=== PATIENT | male | born 1940 | race Caucasian/White ===

== ENCOUNTER → 2016-07-13 | Outpatient (REF) | payer MEDICARE ==
[2016-07-13 19:06] LABS: CALCIUM LEVEL 10.8 MG/DL (8.8-10.2); CREATININE FOR GFR 1.56 MG/DL (0.70-1.30); GLOMERULAR FILTRATION RATE 46.3 (>42); PHOSPHORUS LEVEL 2.9 MG/DL (2.5-4.9); POTASSIUM SERUM 4.3 MEQ/L (3.5-5.1)
== END ==
LOC: M SFHCCLAY 10:40
PROVIDERS: ATTEND Family Medicine
DX: N18.3 Chronic kidney disease, stage 3 (moderate) (principal)
CPT/HCPCS: 80069; G0463

== ENCOUNTER → 2018-02-28 | Outpatient (REF) | payer MEDICARE ==
[2018-02-28 19:23] LABS: PROSTATIC SPECIFIC AG MONITOR 0.2 NG/ML (< 4.0)
== END ==
LOC: M LAB REF 19:00
DX: Z85.46 Personal history of malignant neoplasm of prostate (principal)
CPT/HCPCS: 84153

== ENCOUNTER → 2018-04-18 | Outpatient (REF) | payer MEDICARE ==
[2018-04-18 16:44] LABS: CHOLESTEROL RISK RATIO 4.955 (<5)
== END ==
LOC: M SFHCCLAY 11:40
PROVIDERS: ATTEND Family Medicine
DX: E78.2 Mixed hyperlipidemia (principal); Z23 Encounter for immunization
CPT/HCPCS: 80061; 90682; G0008; G0463

== ENCOUNTER → 2018-05-11 | Outpatient (REF) | payer MEDICARE ==
[2018-05-11 19:43] LABS: PROTHROMBIN TIME 13.3 SECONDS (12.1-14.4)
[2018-05-11 19:44] LABS: PARTIAL THROMBOPLASTIN TIME 36.8 SECONDS (25.4-37.6)
== END ==
LOC: M LABDRWAD 19:10
PROVIDERS: ATTEND Surgery Vascular Surgery
DX: I70.1 Atherosclerosis of renal artery (principal); Z01.818 Encounter for other preprocedural examination; D69.8 Other specified hemorrhagic conditions

== ENCOUNTER → 2018-05-14 | Outpatient (CLI) | payer MEDICARE ==
[2018-05-14 13:02] LABS: BASO % 0.3 % (0.0-1.0); EOS # 0.2 10^3/uL (0.0-0.50); EOS % 3.4 % (0.0-3.0); HEMATOCRIT 40.2 % (42.0-52.0); HEMOGLOBIN 12.7 g/dl (13.5-17.5); LYMPH # 1.6 10^3/uL (1.5-4.5); LYMPH % 24.3 % (24.0-44.0); MEAN CORPUSCULAR HEMOGLOBIN 30.9 pg (27.0-33.0); MEAN CORPUSCULAR HGB CONC 31.6 g/dl (32.0-36.5); MEAN CORPUSCULAR VOLUME 97.8 fl (80.0-96.0); MONO # 0.5 10^3/uL (0.0-0.8); MONO % 7.6 % (0.0-5.0); NEUTROPHILS # 4.3 10^3/uL (1.8-7.7); NEUTROPHILS % 64.3 % (36.0-66.0); PLATELET COUNT, AUTOMATED 193 10^3/uL (150-450); RED BLOOD COUNT 4.11 10^6/uL (4.30-6.10); WHITE BLOOD COUNT 6.7 10^3/uL (4.0-10.0)
[2018-05-14 13:15] LABS: CALCIUM LEVEL 9.9 MG/DL (8.8-10.2); CREATININE FOR GFR 1.74 MG/DL (0.70-1.30); GLOMERULAR FILTRATION RATE 40.6 (>42); POTASSIUM SERUM 4.1 MEQ/L (3.5-5.1)
== END ==
LOC: M LAB 12:00
PROVIDERS: ATTEND Surgery Vascular Surgery
DX: Z01.818 Encounter for other preprocedural examination (principal); D69.8 Other specified hemorrhagic conditions; I70.1 Atherosclerosis of renal artery

== ENCOUNTER → 2019-09-02 | Outpatient (REF) | payer MEDICARE ==
[2019-09-02 16:37] LABS: APPEARANCE, URINE HAZY (CLEAR); BACTERIA, URINE AUTO NEGATIVE (NEGATIVE); BILIRUBIN, URINE AUTO NEGATIVE (NEGATIVE); BLOOD, URINE BLOOD NEGATIVE (NEGATIVE); COLOR, URINE YELLOW (YELLOW); GLUCOSE, URINE (UA) AUTO NEGATIVE (NEGATIVE); KETONE, URINE AUTO NEGATIVE (NEGATIVE); LEUKOCYTE ESTERASE, URINE AUTO NEGATIVE (NEGATIVE); NITRITE, URINE AUTO NEGATIVE (NEGATIVE); PROTEIN, URINE AUTO 2+ mg/dL (NEGATIVE); RBC, URINE AUTO 0 /HPF (0-3); SPECIFIC GRAVITY URINE AUTO 1.012 (1.002-1.035); SQUAMOUS EPITHELIAL CELL UR AU 2 /HPF (0-6); UROBILINOGEN, URINE AUTO 0.2 mg/dL (0.0-2.0); WBC, URINE AUTO 0 /HPF (0-3)
== END ==
LOC: M LAB REF 15:57
PROVIDERS: ATTEND Urology
DX: Z01.812 Encounter for preprocedural laboratory examination (principal); R33.9 Retention of urine, unspecified
CPT/HCPCS: 81001; 87086; G0463

== ENCOUNTER → 2019-12-17 | Outpatient (CLI) | payer MEDICARE ==
[2019-12-17 16:59] LABS: HEMATOCRIT 36.6 % (42.0-52.0); HEMOGLOBIN 12.1 g/dl (13.5-17.5); MEAN CORPUSCULAR HEMOGLOBIN 31.8 pg (27.0-33.0); MEAN CORPUSCULAR HGB CONC 33.1 g/dl (32.0-36.5); MEAN CORPUSCULAR VOLUME 96.3 fl (80.0-96.0); PLATELET COUNT, AUTOMATED 297 10^3/uL (150-450); WHITE BLOOD COUNT 9.3 10^3/uL (4.0-10.0)
[2019-12-17 17:11] LABS: ALBUMIN 3.2 GM/DL (3.2-5.2); BILIRUBIN,TOTAL 0.5 MG/DL (0.2-1.0); CHOLESTEROL RISK RATIO 5.357 (<5); CREATININE FOR GFR 2.03 MG/DL (0.70-1.30); GLOMERULAR FILTRATION RATE 33.8 (>35); POTASSIUM SERUM 4.2 MEQ/L (3.5-5.1); THYROID STIMULATING HORMONE 3.43 uIU/ML (0.358-3.740)
== END ==
LOC: M ADAMS 14:25
PROVIDERS: ATTEND Physician Assistant
DX: M16.12 Unilateral primary osteoarthritis, left hip (principal); N18.3 Chronic kidney disease, stage 3 (moderate); M25.552 Pain in left hip; E78.5 Hyperlipidemia, unspecified; R63.4 Abnormal weight loss

== ENCOUNTER → 2019-12-17 | Outpatient (CLI) | payer MEDICARE ==
--- NOTE | 2020-01-02 11:08 | REP ---
LEFT HIP SERIES 2 VIEWS: 12/17/19 HISTORY: Pain in the left hip. FINDINGS: An aortal bi-iliac stent graph has been placed and is seen unchanged from comparison CT study 01/07/16. There is superior acetabular spurring. Femoral head is smooth and rounded. Tip joint space is preserved. Vascular calcification is noted. Mild greater trochanteric tendon insertion site spurring is seen. Periarticular soft tissues are unremarkable There is some subcortical cyst formation in the superior acetabular margin. IMPRESSION: Mild osteoarthritic changes. Tendon insertion site spurring on the great trochanter. No bony abnormality. MTDD
== END ==
LOC: M ADAMS 14:22
PROVIDERS: ATTEND Physician Assistant
DX: M16.12 Unilateral primary osteoarthritis, left hip (principal); M25.552 Pain in left hip

== ENCOUNTER → 2020-02-13 | Outpatient (REF) | payer MEDICARE ==
[2020-02-13 18:16] LABS: TOTAL PROTEIN 7.3 GM/DL (6.4-8.2)
[2020-02-17 17:06] LABS: ANCA-ATYPICAL <1:20 titer (Neg:<1:20); ANTI DS-DNA AB Negative (Negative); ANTI-GLOMERULAR BASEMENT MEMB 3 units (0-20); ANTINUCLEAR ANTIBODIES DIRECT Negative (Negative); CYTOPLASMIC NEUTROP AB ANCA-C <1:20 titer (Neg:<1:20); FREE KAPPA LIGHT CHAINS SERUM 64.4 mg/L (3.3-19.4); FREE LAMBDA LIGHT CHAINS SERUM 30.9 mg/L (5.7-26.3); KAPPA/LAMBDA RATIO SERUM 2.08 (0.26-1.65); PERINUCLEAR AB ANCA-P <1:20 titer (Neg:<1:20)
[2020-02-18 11:06] LABS: ALBUMIN 3.92 GM/DL (3.29-5.55); ALBUMIN % 53.7 % (55.8-66.1); ALPHA-1-GLOBULIN % 7.1 % (2.9-4.9); ALPHA-1-GLOBULINS 0.52 GM/DL (0.17-0.41); ALPHA-2-GLOBULINS 0.85 GM/DL (0.42-0.99); ALPHA-2-GLOBULINS % 11.6 % (7.1-11.8); BETA-1-GLOBULINS 0.41 GM/DL (0.28-0.60); BETA-1-GLOBULINS % 5.6 % (4.7-7.2); BETA-2-GLOBULINS 0.39 GM/DL (0.19-0.55); BETA-2-GLOBULINS % 5.4 % (3.2-6.5); GAMMA GLOBULIN % 16.6 % (11.1-18.8); GAMMA GLOBULINS 1.21 GM/DL (0.65-1.58)
[2020-02-18 12:42] LABS: IMMUNOTYPING SERUM IGG ABNORMAL (NORMAL); IMMUNOTYPING SERUM KAPPA ABNORMAL (NORMAL)
== END ==
LOC: M LAB REF 17:16
PROVIDERS: ATTEND Internal Medicine Nephrology
DX: R80.9 Proteinuria, unspecified (principal); E83.52 Hypercalcemia; N18.32 Chronic kidney disease, stage 3b

== ENCOUNTER → 2020-05-08 | Outpatient (CLI) | payer MEDICARE ==
--- NOTE | 2020-05-08 11:42 | REP ---
INDICATION: CHRONIC KIDNEY DISEASE NM INJECTION 1ST US 2ND. COMPARISON: Comparison abdominal CT images January 07, 2016.. TECHNIQUE: Urinary tract sonography. FINDINGS: Scanning at the level of the urinary bladder shows no abnormality. Renal cortical echogenicity pattern is felt to be somewhat increased, essentially isoechoic with liver and spleen consistent with chronic medical renal disease.. Prostate is felt to be enlarged. Transabdominal dimensions are 5.0 x 2.8 x 3.7 cm. There are multiple bilateral renal cysts.. No renal mass is seen. No hydronephrosis is noted on either side. The right kidney measures 12.2 x 4.4 x 5.0 cm. The largest cyst the right kidney is at the upper pole measuring 11.6 x 10.0 x 14.1 cm.. The left renal dimensions are 8.0 x 3.9 x 5.6 cm. There is a 9.2 x 6.1 x 7.2 cm cyst at the left kidney upper pole. Multiple smaller cysts are noted. IMPRESSION: Multiple large bilateral renal cysts as seen previously. Increased renal cortical echogenicity pattern consistent with chronic medical renal disease. No hydronephrosis or mass. Enlarged prostate.. <Electronically signed by Aleksey Espinoza > 05/08/20 [id number]
--- NOTE | 2020-05-08 15:11 | REP ---
INDICATION: CHRONIC KIDNEY DISEASE. Primary hyperparathyroidism. Hypercalcemia. COMPARISON: None. TECHNIQUE: 27.5 mCi of technetium 99 M sestamibi is injected and 15 minutes and 3 hour delayed planar images are acquired. A SPECT acquisition is acquired and reformatted axial, coronal and sagittal imaging planes are reviewed. FINDINGS: Initial 15 minutes images demonstrate expected salivary gland and thyroid lobe uptake. Delayed images demonstrate washout of the thyroid uptake. There is no evidence of some significant nodular uptake in the neck or chest on 3 hour delayed images to suggest adenoma. SPECT imaging shows no additional abnormality. IMPRESSION: Negative parathyroid nuclear scintigraphy. <Electronically signed by Aleksey Espinoza > 05/08/20 [id number]
== END ==
LOC: M RAD 09:19
PROVIDERS: ATTEND Internal Medicine Nephrology
DX: N18.32 Chronic kidney disease, stage 3b (principal); N28.1 Cyst of kidney, acquired; E21.0 Primary hyperparathyroidism
CPT/HCPCS: 76775; 78803; A9500

== ENCOUNTER → 2020-07-16 | Outpatient (REF) | payer MEDICARE ==
[2020-07-16 16:32] LABS: FREE T4 1.04 NG/DL (0.76-1.46); THYROID STIMULATING HORMONE 4.16 uIU/ML (0.358-3.740)
== END ==
LOC: M SFHCADAM 11:08
PROVIDERS: ATTEND Physician Assistant
DX: E78.2 Mixed hyperlipidemia (principal)
CPT/HCPCS: 80061; 84439; 84443; G0463

== ENCOUNTER → 2020-08-24 | Outpatient (CLI) | payer SELFPAY | LOC: M LABSMTC 09:34 | PROVIDERS: ATTEND Pediatrics | DX: Z20.822 Contact with and (suspected) exposure to COVID-19 (principal) ==

== ENCOUNTER → 2020-10-27 | Outpatient (REF) | payer MEDICARE, MEDICAID, BC ==
[2020-10-27 15:50] LABS: APPEARANCE, URINE CLOUDY (CLEAR); BACTERIA, URINE AUTO 1+ (NEGATIVE); BILIRUBIN, URINE AUTO NEGATIVE (NEGATIVE); BLOOD, URINE BLOOD NEGATIVE (NEGATIVE); COLOR, URINE YELLOW (YELLOW); GLUCOSE, URINE (UA) AUTO NEGATIVE (NEGATIVE); KETONE, URINE AUTO NEGATIVE (NEGATIVE); LEUKOCYTE ESTERASE, URINE AUTO TRACE (NEGATIVE); MUCUS, URINE SMALL (NEGATIVE); NITRITE, URINE AUTO NEGATIVE (NEGATIVE); PROTEIN, URINE AUTO 2+ mg/dL (NEGATIVE); RBC, URINE AUTO 1 /HPF (0-3); SPECIFIC GRAVITY URINE AUTO 1.014 (1.002-1.035); SQUAMOUS EPITHELIAL CELL UR AU 1 /HPF (0-6); TRIPLE PHOSPHATE CRYSTALS SMALL; UROBILINOGEN, URINE AUTO 0.2 mg/dL (0.0-2.0); WBC, URINE AUTO 7 /HPF (0-3)
== END ==
PROVIDERS: ATTEND Family Medicine
DX: R30.0 Dysuria (principal)

== ENCOUNTER → 2021-01-19 | Outpatient (REF) | payer MEDICARE, MEDICAID, BC ==
[2021-01-19 18:23] LABS: APPEARANCE, URINE CLOUDY (CLEAR); BACTERIA, URINE AUTO 2+ (NEGATIVE); BILIRUBIN, URINE AUTO NEGATIVE (NEGATIVE); BLOOD, URINE BLOOD NEGATIVE (NEGATIVE); COLOR, URINE YELLOW (YELLOW); GLUCOSE, URINE (UA) AUTO NEGATIVE (NEGATIVE); KETONE, URINE AUTO NEGATIVE (NEGATIVE); LEUKOCYTE ESTERASE, URINE AUTO 2+ (NEGATIVE); MUCUS, URINE SMALL (NEGATIVE); NITRITE, URINE AUTO NEGATIVE (NEGATIVE); PROTEIN, URINE AUTO 1+ mg/dL (NEGATIVE); RBC, URINE AUTO 2 /HPF (0-3); SPECIFIC GRAVITY URINE AUTO 1.012 (1.002-1.035); SQUAMOUS EPITHELIAL CELL UR AU 2 /HPF (0-6); TRIPLE PHOSPHATE CRYSTALS SMALL; UROBILINOGEN, URINE AUTO 0.2 mg/dL (0.0-2.0); WBC, URINE AUTO 15 /HPF (0-3)
== END ==
PROVIDERS: ATTEND Physician Assistant
DX: R35.0 Frequency of micturition (principal)

== ENCOUNTER → 2021-02-02 | Outpatient (REF) | payer MEDICARE, MEDICAID, BC | LOC: M LAB REF 17:46 | PROVIDERS: ATTEND Internal Medicine Nephrology | DX: N18.32 Chronic kidney disease, stage 3b (principal); D63.1 Anemia in chronic kidney disease ==

== ENCOUNTER → 2021-03-29 | Outpatient (REF) | payer MEDICARE, MEDICAID, BC ==
[2021-03-29 20:07] LABS: APPEARANCE, URINE CLEAR (CLEAR); BACTERIA, URINE AUTO NEGATIVE (NEGATIVE); BILIRUBIN, URINE AUTO NEGATIVE (NEGATIVE); BLOOD, URINE BLOOD NEGATIVE (NEGATIVE); COLOR, URINE STRAW (YELLOW); GLUCOSE, URINE (UA) AUTO NEGATIVE (NEGATIVE); KETONE, URINE AUTO NEGATIVE (NEGATIVE); LEUKOCYTE ESTERASE, URINE AUTO TRACE (NEGATIVE); NITRITE, URINE AUTO NEGATIVE (NEGATIVE); PROTEIN, URINE AUTO NEGATIVE (NEGATIVE); RBC, URINE AUTO 0 /HPF (0-3); SPECIFIC GRAVITY URINE AUTO 1.009 (1.002-1.035); SQUAMOUS EPITHELIAL CELL UR AU 0 /HPF (0-6); UROBILINOGEN, URINE AUTO 0.2 mg/dL (0.0-2.0); WBC, URINE AUTO 7 /HPF (0-3)
== END ==
LOC: M SFHCPLAZ 19:24
PROVIDERS: ATTEND Physician Assistant
DX: R30.0 Dysuria (principal)

== ENCOUNTER → 2021-06-28 | Outpatient (REF) | payer MEDICARE, MEDICAID, BC | PROVIDERS: ATTEND Family Medicine | DX: Z20.822 Contact with and (suspected) exposure to COVID-19 (principal) ==

== ENCOUNTER → 2021-07-19 | Outpatient (REF) | payer MEDICARE, MEDICAID, BC ==
[2021-07-19 14:03] LABS: APPEARANCE, URINE HAZY (CLEAR); BACTERIA, URINE AUTO 1+ (NEGATIVE); BILIRUBIN, URINE AUTO NEGATIVE (NEGATIVE); BLOOD, URINE BLOOD NEGATIVE (NEGATIVE); COLOR, URINE YELLOW (YELLOW); GLUCOSE, URINE (UA) AUTO NEGATIVE (NEGATIVE); KETONE, URINE AUTO NEGATIVE (NEGATIVE); LEUKOCYTE ESTERASE, URINE AUTO TRACE (NEGATIVE); NITRITE, URINE AUTO NEGATIVE (NEGATIVE); PROTEIN, URINE AUTO NEGATIVE (NEGATIVE); RBC, URINE AUTO 1 /HPF (0-3); SPECIFIC GRAVITY URINE AUTO 1.014 (1.002-1.035); SQUAMOUS EPITHELIAL CELL UR AU 2 /HPF (0-6); UROBILINOGEN, URINE AUTO 0.2 mg/dL (0.0-2.0); WBC, URINE AUTO 19 /HPF (0-3)
== END ==
PROVIDERS: ATTEND Internal Medicine Nephrology
DX: N18.32 Chronic kidney disease, stage 3b (principal); D63.1 Anemia in chronic kidney disease; E61.1 Iron deficiency

== ENCOUNTER → 2021-07-21 | Outpatient (REF) | payer MEDICARE, MEDICAID, BC ==
[2021-07-21 11:59] LABS: BASO % 0.2 % (0.0-1.0); EOS # 0.6 10^3/uL (0.0-0.5); EOS % 6.8 % (0.0-3.0); HEMATOCRIT 33.7 % (42.0-52.0); HEMOGLOBIN 10.7 g/dl (13.5-17.5); LYMPH # 2.4 10^3/uL (1.5-5.0); LYMPH % 29.1 % (24.0-44.0); MEAN CORPUSCULAR HEMOGLOBIN 30.2 pg (27.0-33.0); MEAN CORPUSCULAR HGB CONC 31.8 g/dl (32.0-36.5); MEAN CORPUSCULAR VOLUME 95.2 fl (80.0-96.0); MONO # 0.4 10^3/uL (0.0-0.8); MONO % 4.6 % (2.0-8.0); NEUTROPHILS # 4.8 10^3/uL (1.5-8.5); NEUTROPHILS % 58.9 % (36.0-66.0); PLATELET COUNT, AUTOMATED 220 10^3/uL (150-450); RED BLOOD COUNT 3.54 10^6/uL (4.30-6.10); WHITE BLOOD COUNT 8.1 10^3/uL (4.0-10.0)
[2021-07-21 12:31] LABS: CALCIUM LEVEL 10.1 MG/DL (8.8-10.2); CREATININE FOR GFR 2.36 MG/DL (0.70-1.30); GLOMERULAR FILTRATION RATE 28.3 (>35); POTASSIUM SERUM 4.1 MEQ/L (3.5-5.1)
== END ==
PROVIDERS: ATTEND Internal Medicine Nephrology
DX: E61.1 Iron deficiency (principal); D63.1 Anemia in chronic kidney disease; N18.32 Chronic kidney disease, stage 3b

== ENCOUNTER → 2021-08-23 | Outpatient (REF) | payer MEDICARE, MEDICAID, BC | LOC: M SFHCDERM 14:12 | PROVIDERS: ATTEND Physician Assistant | DX: C44.41 Basal cell carcinoma of skin of scalp and neck (principal) ==

== ENCOUNTER → 2021-10-21 | Outpatient (REF) | payer MEDICARE, MEDICAID, BC | PROVIDERS: ATTEND Family Medicine | DX: Z20.822 Contact with and (suspected) exposure to COVID-19 (principal) ==

== ENCOUNTER → 2021-10-23 | Outpatient (REF) | payer MEDICARE, MEDICAID, BC ==
[2021-10-23 14:38] LABS: APPEARANCE, URINE CLOUDY (CLEAR); BACTERIA, URINE AUTO 3+ (NEGATIVE); BILIRUBIN, URINE AUTO NEGATIVE (NEGATIVE); BLOOD, URINE BLOOD 1+ (NEGATIVE); COLOR, URINE AMBER (YELLOW); GLUCOSE, URINE (UA) AUTO NEGATIVE (NEGATIVE); GRANULAR CAST, URINE AUTO 3 /LPF; KETONE, URINE AUTO NEGATIVE (NEGATIVE); LEUKOCYTE ESTERASE, URINE AUTO 3+ (NEGATIVE); MUCUS, URINE SMALL (NEGATIVE); NITRITE, URINE AUTO POSITIVE (NEGATIVE); PROTEIN, URINE AUTO 2+ mg/dL (NEGATIVE); RBC, URINE AUTO 4 /HPF (0-3); SPECIFIC GRAVITY URINE AUTO 1.013 (1.002-1.035); SQUAMOUS EPITHELIAL CELL UR AU 0 /HPF (0-6); UROBILINOGEN, URINE AUTO 0.2 mg/dL (0.0-2.0); WBC, URINE AUTO 18 /HPF (0-3)
== END ==
PROVIDERS: ATTEND Family Medicine
DX: R35.0 Frequency of micturition (principal)

== ENCOUNTER → 2021-11-29 | Outpatient (REF) | payer MEDICARE, MEDICAID, BC ==
[2021-11-29 11:25] LABS: BASO % 0.3 % (0.0-1.0); EOS # 0.5 10^3/uL (0.0-0.5); EOS % 5.9 % (0.0-3.0); HEMOGLOBIN 9.9 g/dl (13.5-17.5); LYMPH % 25.4 % (24.0-44.0); MEAN CORPUSCULAR HEMOGLOBIN 30.7 pg (27.0-33.0); MEAN CORPUSCULAR HGB CONC 31.9 g/dl (32.0-36.5); MEAN CORPUSCULAR VOLUME 96.3 fl (80.0-96.0); MONO # 0.5 10^3/uL (0.0-0.8); NEUTROPHILS # 4.8 10^3/uL (1.5-8.5); PLATELET COUNT, AUTOMATED 194 10^3/uL (150-450); RED BLOOD COUNT 3.22 10^6/uL (4.30-6.10); WHITE BLOOD COUNT 7.8 10^3/uL (4.0-10.0)
[2021-11-29 12:26] LABS: ALBUMIN 3.4 GM/DL (3.2-5.2); CALCIUM LEVEL 10.1 MG/DL (8.8-10.2); CREATININE FOR GFR 2.85 MG/DL (0.70-1.30); GLOMERULAR FILTRATION RATE 22.8 (>35); MAGNESIUM LEVEL 2.5 MG/DL (1.8-2.4); PHOSPHORUS LEVEL 3.3 MG/DL (2.5-4.9); POTASSIUM SERUM 4.7 MEQ/L (3.5-5.1)
== END ==
PROVIDERS: ATTEND Internal Medicine Nephrology
DX: N18.32 Chronic kidney disease, stage 3b (principal); D63.1 Anemia in chronic kidney disease

== ENCOUNTER → 2022-02-21 | Outpatient (REF) | payer MEDICARE, MEDICAID, BC ==
[2022-02-21 10:07] LABS: BASO % 0.2 % (0.0-1.0); EOS # 0.7 10^3/uL (0.0-0.5); EOS % 7.9 % (0.0-3.0); HEMOGLOBIN 10.3 g/dl (13.5-17.5); LYMPH # 2.4 10^3/uL (1.5-5.0); LYMPH % 28.4 % (24.0-44.0); MEAN CORPUSCULAR HEMOGLOBIN 32.1 pg (27.0-33.0); MEAN CORPUSCULAR HGB CONC 32.2 g/dl (32.0-36.5); MEAN CORPUSCULAR VOLUME 99.7 fl (80.0-96.0); MONO # 0.5 10^3/uL (0.0-0.8); NEUTROPHILS # 4.8 10^3/uL (1.5-8.5); PLATELET COUNT, AUTOMATED 187 10^3/uL (150-450); RED BLOOD COUNT 3.21 10^6/uL (4.30-6.10); WHITE BLOOD COUNT 8.5 10^3/uL (4.0-10.0)
[2022-02-21 10:45] LABS: ALBUMIN 3.7 G/DL (3.2-5.2); CALCIUM LEVEL 9.2 MG/DL (8.3-10.6); CREATININE FOR GFR 2.28 MG/DL (0.70-1.30); FERRITIN 77.5 NG/ML (10.5-307.3); GLOMERULAR FILTRATION RATE 29.4 (>35); MAGNESIUM LEVEL 2.1 MG/DL (1.8-2.4); PERCENT SATURATION 19.6 % (19.7-50.0); PHOSPHORUS LEVEL 3.6 MG/DL (2.4-5.1); POTASSIUM SERUM 4.9 MMOL/L (3.5-5.1)
== END ==
PROVIDERS: ATTEND Internal Medicine Nephrology
DX: N18.32 Chronic kidney disease, stage 3b (principal); Z79.899 Other long term (current) drug therapy

== ENCOUNTER → 2022-02-28 | Outpatient (REF) | payer MEDICARE, MEDICAID, BC ==
[2022-02-28 18:04] LABS: APPEARANCE, URINE MANUAL CLOUDY (CLEAR); BILIRUBIN, URINE MANUAL NEGATIVE (NEGATIVE); BLOOD URINE MANUAL NEGATIVE (NEGATIVE); COLOR, URINE MANUAL YELLOW (YELLOW); GLUCOSE, URINE (UA) MANUAL NEGATIVE (NEGATIVE); KETONE, URINE MANUAL NEGATIVE (NEGATIVE); LEUKOCYTE ESTERASE, URINE MAN POSITIVE (NEGATIVE); NITRITE, URINE MANUAL POSITIVE (NEGATIVE); PROTEIN, URINE MANUAL NEGATIVE (NEGATIVE); SPECIFIC GRAVITY,URINE MANUAL 1.015 (1.002-1.035); UROBILINOGEN, URINE MANUAL NORMAL (NORMAL)
[2022-02-28 18:17] LABS: BACTERIA, URINE LARGE AMOUNT; HYALINE CAST, URINE NONE SEEN /lpf (0-1); RBC, URINE NONE SEEN /hpf (0-3); SQUAMOUS EPITHELIAL CELL URINE SMALL AMOUNT /hpf (SMALL AMT); WBC, URINE TNTC /hpf (0-3)
== END ==
PROVIDERS: ATTEND Internal Medicine Nephrology
DX: N18.32 Chronic kidney disease, stage 3b (principal)

== ENCOUNTER → 2022-05-30 | Outpatient (REF) | payer MEDICARE, MEDICAID, BC ==
[2022-05-30 10:01] LABS: BASO % 0.2 % (0.0-1.0); EOS # 0.4 10^3/uL (0.0-0.5); EOS % 5.8 % (0.0-3.0); LYMPH # 1.4 10^3/uL (1.5-5.0); LYMPH % 22.7 % (24.0-44.0); MEAN CORPUSCULAR HEMOGLOBIN 30.5 pg (27.0-33.0); MEAN CORPUSCULAR VOLUME 98.3 fl (80.0-96.0); MONO # 0.4 10^3/uL (0.0-0.8); MONO % 6.3 % (2.0-8.0); NEUTROPHILS # 3.9 10^3/uL (1.5-8.5); NEUTROPHILS % 64.8 % (36.0-66.0); PLATELET COUNT, AUTOMATED 143 10^3/uL (150-450); RED BLOOD COUNT 2.95 10^6/uL (4.30-6.10)
[2022-05-30 10:28] LABS: CREATININE FOR GFR 2.41 MG/DL (0.70-1.30); GLOMERULAR FILTRATION RATE 27.6 (>35); MAGNESIUM LEVEL 2.1 MG/DL (1.8-2.4); PERCENT SATURATION 20.8 % (19.7-50.0); PHOSPHORUS LEVEL 3.3 MG/DL (2.4-5.1); POTASSIUM SERUM 4.8 MMOL/L (3.5-5.1)
[2022-05-30 10:33] LABS: FERRITIN 60.9 NG/ML (10.5-307.3)
== END ==
PROVIDERS: ATTEND Internal Medicine Nephrology
DX: N18.32 Chronic kidney disease, stage 3b (principal); D63.1 Anemia in chronic kidney disease

== ENCOUNTER 2022-06-06 10:25 | Outpatient (CLI) | payer MEDICARE, MEDICAID ==
[~2022-06-06] VITALS: Ht 179.1 cm; Wt 68.5 kg
[2022-06-06 10:25] VITALS: BP 165/76
[~2022-06-06 10:25] MED LIST: ALBUTEROL SULFATE 2.5MG/0.5ML INH NEB SOLN INH PRN; EPINEPHrine INJ 1 MG/ML 1ML AMP IM PRN; diphenhydrAMINE 50MG/ML VIAL IV PRN; methylPREDNISolone 125MG 2ML VIAL IV PRN
[2022-06-06] MEDS ORDERED: FERRIC CARBOXYMALTOSE INJ 750 MG in NS 250 ML (>50kg) IV ONE ×3 (10:30)
[2022-06-06] MEDS ORDERED: NS 1,000 ML IV SCH (10:30)
[2022-06-06 11:40] VITALS: BP 153/70
== END 2022-06-06 11:45 | disposition home or self-care (01) ==
LOC: M INFU 10:25
PROVIDERS: ATTEND Internal Medicine Nephrology
DX: E61.1 Iron deficiency (principal)
CPT/HCPCS: 96365; J1439

== ENCOUNTER 2022-06-13 10:45 | Outpatient (CLI) | payer MEDICARE, MEDICAID ==
[~2022-06-13] VITALS: Ht 177.8 cm; Wt 68.6 kg
[2022-06-13 10:45] VITALS: BP 139/67
[~2022-06-13 10:45] MED LIST changes: +FERRIC CARBOXYMALTOSE INJ 750 MG in NS 250 ML (>50kg) IV ONE; +NS 1,000 ML IV SCH
[2022-06-13 12:05] VITALS: BP 132/68
== END 2022-06-13 12:05 | disposition home or self-care (01) ==
LOC: M INFU 10:45
PROVIDERS: ATTEND Internal Medicine Nephrology
DX: E61.1 Iron deficiency (principal)
CPT/HCPCS: 96365; J1439

== ENCOUNTER → 2022-07-15 | Outpatient (REF) | payer MEDICARE, MEDICAID ==
[2022-07-15 15:48] LABS: APPEARANCE, URINE CLOUDY (CLEAR); BACTERIA, URINE AUTO 2+ (NEGATIVE); BILIRUBIN, URINE AUTO NEGATIVE (NEGATIVE); BLOOD, URINE BLOOD 3+ (NEGATIVE); COLOR, URINE AMBER (YELLOW); GLUCOSE, URINE (UA) AUTO NEGATIVE (NEGATIVE); KETONE, URINE AUTO NEGATIVE (NEGATIVE); LEUKOCYTE ESTERASE, URINE AUTO 3+ (NEGATIVE); MUCUS, URINE SMALL (NEGATIVE); NITRITE, URINE AUTO NEGATIVE (NEGATIVE); PROTEIN, URINE AUTO 2+ mg/dL (NEGATIVE); RBC, URINE AUTO 56 /HPF (0-3); SPECIFIC GRAVITY URINE AUTO 1.013 (1.002-1.035); SQUAMOUS EPITHELIAL CELL UR AU 1 /HPF (0-6); TRIPLE PHOSPHATE CRYSTALS SMALL; UROBILINOGEN, URINE AUTO 0.2 mg/dL (0.0-2.0); WBC, URINE AUTO TNTC /HPF (0-3)
== END ==
LOC: EEVIPCON 15:12
PROVIDERS: ATTEND Family Medicine
DX: R31.9 Hematuria, unspecified (principal); R30.9 Painful micturition, unspecified

== ENCOUNTER → 2022-07-22 | Outpatient (REF) | payer MEDICARE, MEDICAID ==
[2022-07-22 09:32] LABS: ALBUMIN 3.3 G/DL (3.2-5.2); CALCIUM LEVEL 9.1 MG/DL (8.3-10.6); CREATININE FOR GFR 3.33 MG/DL (0.70-1.30); POTASSIUM SERUM 5.2 MMOL/L (3.5-5.1)
== END ==
PROVIDERS: ATTEND Family Medicine
DX: N18.30 Chronic kidney disease, stage 3 unspecified (principal)

== ENCOUNTER → 2022-07-27 | Outpatient (REF) | payer MEDICARE, MEDICAID ==
[2022-07-27 11:34] LABS: ALBUMIN 3.3 G/DL (3.2-5.2); CREATININE FOR GFR 2.76 MG/DL (0.70-1.30); GLOMERULAR FILTRATION RATE 23.6 (>35); PHOSPHORUS LEVEL 3.2 MG/DL (2.4-5.1); POTASSIUM SERUM 5.4 MMOL/L (3.5-5.1)
== END ==
PROVIDERS: ATTEND Family Medicine
DX: N18.30 Chronic kidney disease, stage 3 unspecified (principal)

== ENCOUNTER → 2022-09-05 | Outpatient (REF) | payer MEDICARE, MEDICAID ==
[2022-09-05 13:18] LABS: BASO % 0.4 % (0.0-1.0); EOS # 0.4 10^3/uL (0.0-0.5); EOS % 4.6 % (0.0-3.0); HEMATOCRIT 33.8 % (42.0-52.0); HEMOGLOBIN 11.2 g/dl (13.5-17.5); LYMPH # 1.8 10^3/uL (1.5-5.0); LYMPH % 22.7 % (24.0-44.0); MEAN CORPUSCULAR HEMOGLOBIN 32.9 pg (27.0-33.0); MEAN CORPUSCULAR HGB CONC 33.1 g/dl (32.0-36.5); MEAN CORPUSCULAR VOLUME 99.4 fl (80.0-96.0); MONO # 0.5 10^3/uL (0.0-0.8); MONO % 5.7 % (2.0-8.0); NEUTROPHILS # 5.2 10^3/uL (1.5-8.5); NEUTROPHILS % 66.1 % (36.0-66.0); PLATELET COUNT, AUTOMATED 174 10^3/uL (150-450); WHITE BLOOD COUNT 7.8 10^3/uL (4.0-10.0)
[2022-09-05 13:32] LABS: ALBUMIN 3.5 G/DL (3.2-5.2); CALCIUM LEVEL 8.7 MG/DL (8.3-10.6); CREATININE FOR GFR 2.11 MG/DL (0.70-1.30); GLOMERULAR FILTRATION RATE 32.2 (>35); MAGNESIUM LEVEL 2.2 MG/DL (1.8-2.4); PHOSPHORUS LEVEL 3.4 MG/DL (2.4-5.1); POTASSIUM SERUM 4.7 MMOL/L (3.5-5.1)
== END ==
PROVIDERS: ATTEND Internal Medicine Nephrology
DX: N18.32 Chronic kidney disease, stage 3b (principal); D63.1 Anemia in chronic kidney disease

== ENCOUNTER 2022-11-12 00:53 | Emergency (ER) | payer MEDICARE, MEDICAID ==
[~2022-11-12] VITALS: Ht 180.3 cm; Wt 76.0 kg
[2022-11-12] MEDS ORDERED: IPRATROPIUM 0.5MG/ALBUTEROL 2.5MG INH SOL UD 3ML (DUONEB) NEB ONE (01:20)
[2022-11-12] MEDS ORDERED: methylPREDNISolone 125MG 2ML VIAL IV ONE (01:40)
[2022-11-12 02:08] LABS: BASO % 0.1 % (0.0-1.0); EOS % 0.3 % (0.0-3.0); HEMATOCRIT 36.3 % (42.0-52.0); HEMOGLOBIN 11.6 g/dl (13.5-17.5); LYMPH % 6.7 % (24.0-44.0); MEAN CORPUSCULAR VOLUME 97.1 fl (80.0-96.0); MONO # 0.4 10^3/uL (0.0-0.8); MONO % 3.1 % (2.0-8.0); NEUTROPHILS # 12.6 10^3/uL (1.5-8.5); PLATELET COUNT, AUTOMATED 220 10^3/uL (150-450); RED BLOOD COUNT 3.74 10^6/uL (4.30-6.10); WHITE BLOOD COUNT 14.2 10^3/uL (4.0-10.0)
[2022-11-12 03:24] LABS: CK-MB VALUE MASS 3.9 NG/ML (<3.6); CREATININE FOR GFR 2.32 MG/DL (0.70-1.30); GLOMERULAR FILTRATION RATE 28.8 (>35); MB/CK RELATIVE INDEX 6.09 (< OR =4)
[2022-11-12 04:00] LABS: CK-MB VALUE MASS 6.9 NG/ML (<3.6)
[2022-11-12 04:01] LABS: MB/CK RELATIVE INDEX 7.11 (< OR =4)
[2022-11-12] MEDS ORDERED: HEPARIN SOD (PORCINE) 5000UNITS/ML 1ML VIAL/SYRINGE IV ONE (04:35)
[2022-11-12] MEDS ORDERED: HEPARIN DRIP 25,000 UNITS in IV 1 EA IV SCH (04:35)
[2022-11-12] MEDS ORDERED: HEPARIN SOD (PORCINE) 5000UNITS/ML 1ML VIAL/SYRINGE IV PRN (04:35)
[2022-11-12 05:15] LABS: INR 1.21; PARTIAL THROMBOPLASTIN TIME 31.6 SECONDS (24.8-34.2)
[2022-11-12 13:01] VITALS: BP 179/81; TEMP 98; O2SAT 93
== END 2022-11-12 13:12 | disposition short-term general hospital (02) ==
LOC: M ED 00:53
DX: I21.4 Non-ST elevation (NSTEMI) myocardial infarction (principal); I11.9 Hypertensive heart disease without heart failure; I25.10 Atherosclerotic heart disease of native coronary artery without angina pectoris; E78.5 Hyperlipidemia, unspecified; N18.9 Chronic kidney disease, unspecified; Z79.899 Other long term (current) drug therapy
CPT/HCPCS: 71045; 80048; 82550; 82553; 84484; 85025; 85610; 85730; 87040; 87486; 87581; 87633; 87798; 93005; 93041; 94640; 94760; 96365; 96366; 96375; 99285; J2930

== ENCOUNTER → 2022-12-01 | Outpatient (REF) | payer MEDICARE, MEDICAID | LOC: M SFHCADAM 16:51 | PROVIDERS: ATTEND Physician Assistant | DX: N30.00 Acute cystitis without hematuria (principal) ==

== ENCOUNTER → 2022-12-09 | Outpatient (REF) | payer MEDICARE, MEDICAID ==
[~2022-12-09] MED LIST changes: +ACET32TAB PO; -ALBUTEROL SULFATE 2.5MG/0.5ML INH NEB SOLN INH PRN; +ASPI81TA26 PO; +ATOR40TA75 PO; +CLOP75TA2 PO; -EPINEPHrine INJ 1 MG/ML 1ML AMP IM PRN; -FERRIC CARBOXYMALTOSE INJ 750 MG in NS 250 ML (>50kg) IV ONE; +ISOS1TAB35 PO; +METO1TAB32 PO; -NS 1,000 ML IV SCH; +TORS20TA2 PO; -diphenhydrAMINE 50MG/ML VIAL IV PRN; -methylPREDNISolone 125MG 2ML VIAL IV PRN
[2022-12-09 09:49] LABS: BASO % 0.3 % (0.0-1.0); EOS # 0.4 10^3/uL (0.0-0.5); EOS % 4.9 % (0.0-3.0); HEMOGLOBIN 12.3 g/dl (13.5-17.5); LYMPH # 1.5 10^3/uL (1.5-5.0); LYMPH % 20.4 % (24.0-44.0); MEAN CORPUSCULAR HEMOGLOBIN 30.4 pg (27.0-33.0); MEAN CORPUSCULAR HGB CONC 31.5 g/dl (32.0-36.5); MEAN CORPUSCULAR VOLUME 96.5 fl (80.0-96.0); MONO # 0.3 10^3/uL (0.0-0.8); MONO % 4.4 % (2.0-8.0); NEUTROPHILS % 69.6 % (36.0-66.0); PLATELET COUNT, AUTOMATED 207 10^3/uL (150-450); RED BLOOD COUNT 4.04 10^6/uL (4.30-6.10); WHITE BLOOD COUNT 7.2 10^3/uL (4.0-10.0)
[2022-12-09 10:22] LABS: ALBUMIN 3.3 G/DL (3.2-5.2); CALCIUM LEVEL 9.9 MG/DL (8.3-10.6); CREATININE FOR GFR 2.54 MG/DL (0.70-1.30); GLOMERULAR FILTRATION RATE 25.9 (>35); MAGNESIUM LEVEL 2.2 MG/DL (1.8-2.4); PHOSPHORUS LEVEL 3.3 MG/DL (2.4-5.1)
== END ==
PROVIDERS: ATTEND Internal Medicine Nephrology
DX: N18.32 Chronic kidney disease, stage 3b (principal); Z79.899 Other long term (current) drug therapy

== ENCOUNTER 2022-12-11 09:06 | Inpatient (IN) | payer MEDICARE, MEDICAID ==
[~2022-12-11] VITALS: Ht 180.3 cm; Wt 67.1 kg
[2022-12-11] MEDS: METOPROLOL SUCC *XL* 25MG TAB (TopROL *XL*) PO SCH (09:00)
[2022-12-11 09:53] LABS: HEMATOCRIT 36.9 % (42.0-52.0); HEMOGLOBIN 11.6 g/dl (13.5-17.5); MEAN CORPUSCULAR HEMOGLOBIN 30.4 pg (27.0-33.0); MEAN CORPUSCULAR HGB CONC 31.4 g/dl (32.0-36.5); MEAN CORPUSCULAR VOLUME 96.6 fl (80.0-96.0); PLATELET COUNT, AUTOMATED 152 10^3/uL (150-450); RED BLOOD COUNT 3.82 10^6/uL (4.30-6.10); WHITE BLOOD COUNT 15.4 10^3/uL (4.0-10.0)
[2022-12-11 10:07] LABS: INR 1.28; PROTHROMBIN TIME 15.7 SECONDS (12.5-14.5)
[2022-12-11 10:08] LABS: PARTIAL THROMBOPLASTIN TIME 29.2 SECONDS (24.8-34.2)
[2022-12-11] MEDS ORDERED: ERTAPENEM SODIUM 1 GM in NS MINI-BAG PLUS 50 ML IV ONE (10:15)
[2022-12-11] MEDS ORDERED: NS 1,000 ML IV ONE (10:15)
[2022-12-11 10:19] LABS: CK-MB VALUE MASS 11.1 NG/ML (<3.6)
[2022-12-11 10:20] LABS: ALBUMIN 3.2 G/DL (3.2-5.2); BILIRUBIN,DIRECT 0.3 MG/DL (<0.4); BILIRUBIN,TOTAL 0.6 MG/DL (0.3-1.2); CALCIUM LEVEL 9.6 MG/DL (8.3-10.6); CREATININE FOR GFR 2.51 MG/DL (0.70-1.30); GLOMERULAR FILTRATION RATE 26.3 (>35); MB/CK RELATIVE INDEX 8.1 (< OR =4); POTASSIUM SERUM 3.5 MMOL/L (3.5-5.1); TOTAL PROTEIN 6.3 G/DL (5.7-8.2)
[2022-12-11 10:32] LABS: PROCALCITONIN 37.76 ng/ml
[2022-12-11 11:50] LABS: CK-MB VALUE MASS 15.5 NG/ML (<3.6)
[2022-12-11 11:56] LABS: MB/CK RELATIVE INDEX 8.56 (< OR =4)
[2022-12-11] MEDS ORDERED: MOM 30ML SUSPENSION UDC PO PRN (14:30)
[2022-12-11] MEDS ORDERED: ACETAMINOPHEN TAB 650MG DOSE (2X325MG) PO PRN (14:30)
[2022-12-11] MEDS ORDERED: MED REC IN PROGRESS XX SCH (14:35)
[2022-12-11] MEDS ORDERED: HEPARIN SOD (PORCINE) 5000UNITS/ML 1ML VIAL/SYRINGE IV PRN (14:40)
[2022-12-11] MEDS ORDERED: HEPARIN SOD (PORCINE) 5000UNITS/ML 1ML VIAL/SYRINGE IV ONE ×2 (14:40→16:00)
[2022-12-11 14:49] LABS: ERYTHROCYTE SEDIMENTATION RATE 32 mm/hr (0-20)
[2022-12-11] MEDS ORDERED: MED REC CURRENTLY UNOBTAINABLE XX SCH (14:55)
[2022-12-11 14:57] LABS: C REACTIVE PROTEIN QUANTITATIV 2.5 MG/DL (<1.0)
[2022-12-11 15:26] LABS: BASO % 0.2 % (0.0-1.0); EOS % 0.1 % (0.0-3.0); LYMPH # 0.7 10^3/uL (1.5-5.0); LYMPH % 4.7 % (24.0-44.0); MONO # 0.5 10^3/uL (0.0-0.8); MONO % 3.2 % (2.0-8.0); NEUTROPHILS # 13.5 10^3/uL (1.5-8.5); NEUTROPHILS % 90.8 % (36.0-66.0)
[2022-12-11 15:30] LABS: RSV AMPLIFICATION NEGATIVE (NEGATIVE)
[2022-12-11] MEDS ORDERED: CLOP75TA2 PO (15:59)
[2022-12-11] MEDS ORDERED: ATOR40TA75 PO (15:59)
[2022-12-11] MEDS ORDERED: ACET32TAB PO (15:59)
[2022-12-11] MEDS ORDERED: ASPI81TA26 PO (15:59)
[2022-12-11] MEDS ORDERED: TORS20TA2 PO (15:59)
[2022-12-11] MEDS ORDERED: METO1TAB32 PO (15:59)
[2022-12-11] MEDS ORDERED: ISOS1TAB35 PO (15:59)
[2022-12-11] MEDS ORDERED: HOME MED LIST COMPLETE! XX SCH (16:05)
[2022-12-11 16:43] VITALS: BP 128/56; TEMP 97.5; O2SAT 96
[2022-12-11] MEDS: PANTOPRAZOLE 40MG VIAL IV SCH (17:26)
[2022-12-11] MEDS: HEPARIN DRIP 25,000 UNITS in IV 1 EA IV SCH (17:26)
[2022-12-11] MEDS: ISOSORBIDE MON. (IMDUR) 30MG XR TAB PO SCH (18:43)
[2022-12-11] MEDS: ATORVASTATIN 20 MG TAB PO SCH (18:44)
[2022-12-11] MEDS: DOCUSATE SODIUM 100MG CAPSULE PO SCH (20:21)
[2022-12-11 20:41] VITALS: BP 104/56; TEMP 98; O2SAT 96
[2022-12-11 23:43] VITALS: BP 103/57; TEMP 98.1; O2SAT 96
[2022-12-11 23:47] LABS: INR 1.45; PROTHROMBIN TIME 17.3 SECONDS (12.5-14.5)
[2022-12-12 00:38] LABS: PARTIAL THROMBOPLASTIN TIME > 240.0 SECONDS (24.8-34.2)
[2022-12-12 02:59] LABS: INR 1.38; PROTHROMBIN TIME 16.6 SECONDS (12.5-14.5)
[2022-12-12 03:00] LABS: PARTIAL THROMBOPLASTIN TIME 83.5 SECONDS (24.8-34.2)
[2022-12-12 04:09] VITALS: BP 104/56; TEMP 97.6; O2SAT 96
[2022-12-12 05:08] LABS: BASO % 0.2 % (0.0-1.0); EOS % 0.2 % (0.0-3.0); HEMATOCRIT 31.9 % (42.0-52.0); HEMOGLOBIN 10.1 g/dl (13.5-17.5); LYMPH # 1.2 10^3/uL (1.5-5.0); LYMPH % 8.9 % (24.0-44.0); MEAN CORPUSCULAR HEMOGLOBIN 30.1 pg (27.0-33.0); MEAN CORPUSCULAR HGB CONC 31.7 g/dl (32.0-36.5); MEAN CORPUSCULAR VOLUME 94.9 fl (80.0-96.0); MONO # 0.6 10^3/uL (0.0-0.8); MONO % 4.4 % (2.0-8.0); NEUTROPHILS % 85.1 % (36.0-66.0); PLATELET COUNT, AUTOMATED 117 10^3/uL (150-450); RED BLOOD COUNT 3.36 10^6/uL (4.30-6.10); WHITE BLOOD COUNT 12.9 10^3/uL (4.0-10.0)
[2022-12-12 05:30] LABS: CALCIUM LEVEL 8.9 MG/DL (8.3-10.6); CREATININE FOR GFR 2.56 MG/DL (0.70-1.30); GLOMERULAR FILTRATION RATE 25.7 (>35); MAGNESIUM LEVEL 1.8 MG/DL (1.8-2.4); POTASSIUM SERUM 3.8 MMOL/L (3.5-5.1)
[2022-12-12 08:18] VITALS: BP 120/58; TEMP 97.4; O2SAT 97
[2022-12-12] MEDS: METOPROLOL SUCC *XL* 25MG TAB (TopROL *XL*) PO SCH (09:00)
[2022-12-12] MEDS: PANTOPRAZOLE 40MG VIAL IV SCH (09:26)
[2022-12-12] MEDS: DOCUSATE SODIUM 100MG CAPSULE PO SCH ×2 (09:27→20:43)
[2022-12-12] MEDS: CLOPIDOGREL 75 MG TAB PO SCH (09:27)
[2022-12-12] MEDS: ASPIRIN 81MG CHEW TABLET PO SCH (09:27)
[2022-12-12] MEDS: ATORVASTATIN 20 MG TAB PO SCH (09:27)
[2022-12-12] MEDS: ISOSORBIDE MON. (IMDUR) 30MG XR TAB PO SCH (09:29)
[2022-12-12 10:45] LABS: FOLATE 5.8 NG/ML (>5.4)
[2022-12-12 10:52] LABS: PERCENT SATURATION 8.2 % (19.7-50.0)
[2022-12-12 10:56] LABS: FERRITIN 421.6 NG/ML (10.5-307.3)
[2022-12-12] MEDS ORDERED: ERTAPENEM SODIUM 1 GM in NS MINI-BAG PLUS 50 ML IV SCH (11:00)
[2022-12-12 12:00] VITALS: BP 119/54; TEMP 96.9; O2SAT 98
[2022-12-12 12:34] LABS: HEMATOCRIT 34.1 % (42.0-52.0); HEMOGLOBIN 10.8 g/dl (13.5-17.5)
[2022-12-12] MEDS: ERTAPENEM SODIUM 500 MG in NS 50 ML IV SCH (15:04)
[2022-12-12 16:00] VITALS: BP 117/57; TEMP 97.9; O2SAT 92
[2022-12-12] MEDS: HEPARIN DRIP 25,000 UNITS in IV 1 EA IV SCH (18:48)
[2022-12-12 19:04] LABS: HEMATOCRIT 30.4 % (42.0-52.0); HEMOGLOBIN 9.7 g/dl (13.5-17.5)
[2022-12-12 20:03] VITALS: BP 119/70; TEMP 97.7; O2SAT 95
[2022-12-13 00:29] VITALS: BP 124/61; TEMP 97.5; O2SAT 96
[2022-12-13 04:23] VITALS: BP 127/60; TEMP 97.5; O2SAT 96
[2022-12-13 06:22] LABS: HEMATOCRIT 32.4 % (42.0-52.0); HEMOGLOBIN 10.2 g/dl (13.5-17.5); MEAN CORPUSCULAR HEMOGLOBIN 30.3 pg (27.0-33.0); MEAN CORPUSCULAR HGB CONC 31.5 g/dl (32.0-36.5); MEAN CORPUSCULAR VOLUME 96.1 fl (80.0-96.0); PLATELET COUNT, AUTOMATED 124 10^3/uL (150-450); RED BLOOD COUNT 3.37 10^6/uL (4.30-6.10); WHITE BLOOD COUNT 8.9 10^3/uL (4.0-10.0)
[2022-12-13 06:53] LABS: CALCIUM LEVEL 9.3 MG/DL (8.3-10.6); CREATININE FOR GFR 2.71 MG/DL (0.70-1.30); MAGNESIUM LEVEL 2.2 MG/DL (1.8-2.4); POTASSIUM SERUM 4.3 MMOL/L (3.5-5.1)
[2022-12-13 07:17] LABS: ATYPICAL LYMPH 3 % (0-5); EOSINOPHILS 5 % (0-3); LYMPHOCYTES 4 % (16-44); MONOCYTES 2 % (0-5); NEUTROPHILS 86 % (28-66)
[2022-12-13 07:18] LABS: PLATELET ESTIMATE DECREASED (NORMAL)
[2022-12-13 07:43] VITALS: BP 134/63; TEMP 97.6; O2SAT 98
[2022-12-13] MEDS: PANTOPRAZOLE 40MG VIAL IV SCH (09:01)
[2022-12-13] MEDS: CLOPIDOGREL 75 MG TAB PO SCH (09:01)
[2022-12-13] MEDS: ASPIRIN 81MG CHEW TABLET PO SCH (09:02)
[2022-12-13] MEDS: ATORVASTATIN 20 MG TAB PO SCH (09:02)
[2022-12-13] MEDS: DOCUSATE SODIUM 100MG CAPSULE PO SCH ×2 (09:02→21:26)
[2022-12-13] MEDS: ISOSORBIDE MON. (IMDUR) 30MG XR TAB PO SCH (09:05)
[2022-12-13] MEDS: METOPROLOL SUCC *XL* 25MG TAB (TopROL *XL*) PO SCH (09:07)
[2022-12-13 11:51] LABS: HEMATOCRIT 33.5 % (42.0-52.0); HEMOGLOBIN 10.6 g/dl (13.5-17.5)
[2022-12-13 12:11] VITALS: BP 119/55; TEMP 97.9; O2SAT 96
[2022-12-13] MEDS: ERTAPENEM SODIUM 500 MG in NS 50 ML IV SCH (12:17)
[2022-12-13 15:48] VITALS: BP 125/57; TEMP 97.5; O2SAT 96
[2022-12-13 18:20] LABS: HEMATOCRIT 34.3 % (42.0-52.0); HEMOGLOBIN 10.8 g/dl (13.5-17.5)
[2022-12-13 19:32] VITALS: BP 123/55; TEMP 97.6; O2SAT 97
[2022-12-14 04:10] VITALS: BP 139/62; TEMP 98.2; O2SAT 94
[2022-12-14 04:52] LABS: BASO % 0.2 % (0.0-1.0); EOS # 0.3 10^3/uL (0.0-0.5); HEMATOCRIT 31.8 % (42.0-52.0); HEMOGLOBIN 10.2 g/dl (13.5-17.5); LYMPH # 1.4 10^3/uL (1.5-5.0); LYMPH % 16.9 % (24.0-44.0); MEAN CORPUSCULAR HEMOGLOBIN 30.4 pg (27.0-33.0); MEAN CORPUSCULAR HGB CONC 32.1 g/dl (32.0-36.5); MEAN CORPUSCULAR VOLUME 94.6 fl (80.0-96.0); MONO # 0.5 10^3/uL (0.0-0.8); MONO % 6.3 % (2.0-8.0); NEUTROPHILS # 5.8 10^3/uL (1.5-8.5); NEUTROPHILS % 71.9 % (36.0-66.0); PLATELET COUNT, AUTOMATED 126 10^3/uL (150-450); RED BLOOD COUNT 3.36 10^6/uL (4.30-6.10); WHITE BLOOD COUNT 8.1 10^3/uL (4.0-10.0)
[2022-12-14 06:29] LABS: CALCIUM LEVEL 9.1 MG/DL (8.3-10.6); CREATININE FOR GFR 2.38 MG/DL (0.70-1.30); GLOMERULAR FILTRATION RATE 27.9 (>35); MAGNESIUM LEVEL 2.3 MG/DL (1.8-2.4); POTASSIUM SERUM 4.5 MMOL/L (3.5-5.1)
[2022-12-14 07:38] VITALS: BP 132/63; TEMP 97.9; O2SAT 95
[2022-12-14] MEDS: PANTOPRAZOLE 40MG VIAL IV SCH (08:39)
[2022-12-14] MEDS: ATORVASTATIN 20 MG TAB PO SCH (08:39)
[2022-12-14] MEDS: ASPIRIN 81MG CHEW TABLET PO SCH (08:39)
[2022-12-14] MEDS: CLOPIDOGREL 75 MG TAB PO SCH (08:39)
[2022-12-14] MEDS: METOPROLOL SUCC *XL* 25MG TAB (TopROL *XL*) PO SCH (08:41)
[2022-12-14] MEDS: DOCUSATE SODIUM 100MG CAPSULE PO SCH ×2 (08:42→21:00)
[2022-12-14] MEDS: ISOSORBIDE MON. (IMDUR) 30MG XR TAB PO SCH (08:42)
[2022-12-14 11:46] VITALS: BP 128/59; TEMP 97.5; O2SAT 98
[2022-12-14] MEDS: ERTAPENEM SODIUM 500 MG in NS 50 ML IV SCH (12:17)
[2022-12-14 12:48] LABS: HEMATOCRIT 31.9 % (42.0-52.0); HEMOGLOBIN 10.1 g/dl (13.5-17.5)
[2022-12-14 16:01] VITALS: BP 141/65; TEMP 97.5; O2SAT 99
[2022-12-14 18:41] LABS: HEMATOCRIT 30.9 % (42.0-52.0); HEMOGLOBIN 9.8 g/dl (13.5-17.5)
[2022-12-14 18:49] VITALS: BP 134/60; TEMP 97.5; O2SAT 95
[2022-12-15] MEDS ORDERED: TAMSULOSIN 0.4 MG CAP PO ONE (03:45)
[2022-12-15 05:28] VITALS: BP 130/64; TEMP 97.9; O2SAT 93
[2022-12-15 07:15] LABS: BASO % 0.3 % (0.0-1.0); EOS # 0.3 10^3/uL (0.0-0.5); EOS % 4.1 % (0.0-3.0); HEMATOCRIT 31.8 % (42.0-52.0); HEMOGLOBIN 9.8 g/dl (13.5-17.5); LYMPH # 1.3 10^3/uL (1.5-5.0); LYMPH % 20.7 % (24.0-44.0); MEAN CORPUSCULAR HEMOGLOBIN 29.9 pg (27.0-33.0); MEAN CORPUSCULAR HGB CONC 30.8 g/dl (32.0-36.5); MONO # 0.4 10^3/uL (0.0-0.8); MONO % 5.7 % (2.0-8.0); NEUTROPHILS # 4.2 10^3/uL (1.5-8.5); NEUTROPHILS % 67.9 % (36.0-66.0); PLATELET COUNT, AUTOMATED 125 10^3/uL (150-450); RED BLOOD COUNT 3.28 10^6/uL (4.30-6.10); WHITE BLOOD COUNT 6.1 10^3/uL (4.0-10.0)
[2022-12-15 07:43] LABS: CALCIUM LEVEL 9.3 MG/DL (8.3-10.6); CREATININE FOR GFR 2.21 MG/DL (0.70-1.30); GLOMERULAR FILTRATION RATE 30.4 (>35); MAGNESIUM LEVEL 2.1 MG/DL (1.8-2.4); POTASSIUM SERUM 4.2 MMOL/L (3.5-5.1)
[2022-12-15 08:30] VITALS: BP 134/76; TEMP 97.7; O2SAT 95
[2022-12-15] MEDS: ATORVASTATIN 20 MG TAB PO SCH (09:03)
[2022-12-15] MEDS: CLOPIDOGREL 75 MG TAB PO SCH (09:03)
[2022-12-15] MEDS: ASPIRIN 81MG CHEW TABLET PO SCH (09:03)
[2022-12-15] MEDS: DOCUSATE SODIUM 100MG CAPSULE PO SCH ×2 (09:03→20:51)
[2022-12-15] MEDS: ISOSORBIDE MON. (IMDUR) 30MG XR TAB PO SCH (09:04)
[2022-12-15] MEDS: PANTOPRAZOLE 40MG VIAL IV SCH (09:04)
[2022-12-15] MEDS: METOPROLOL SUCC *XL* 25MG TAB (TopROL *XL*) PO SCH (09:04)
[2022-12-15] MEDS: ERTAPENEM SODIUM 500 MG in NS 50 ML IV SCH (10:54)
[2022-12-15 12:18] LABS: HEMATOCRIT 32.2 % (42.0-52.0); HEMOGLOBIN 9.9 g/dl (13.5-17.5)
[2022-12-15 14:00] VITALS: BP 131/62; TEMP 97.5; O2SAT 98
[2022-12-15 18:02] LABS: HEMATOCRIT 31.7 % (42.0-52.0)
[2022-12-15] MEDS: TAMSULOSIN 0.4 MG CAP PO SCH (20:51)
[2022-12-15 21:36] VITALS: BP 133/62; TEMP 97.9; O2SAT 97
[2022-12-16 05:25] VITALS: BP 131/63; TEMP 97.9; O2SAT 97
[2022-12-16 06:48] LABS: BASO % 0.4 % (0.0-1.0); EOS # 0.3 10^3/uL (0.0-0.5); EOS % 4.8 % (0.0-3.0); HEMATOCRIT 32.3 % (42.0-52.0); HEMOGLOBIN 10.2 g/dl (13.5-17.5); LYMPH # 1.4 10^3/uL (1.5-5.0); LYMPH % 24.9 % (24.0-44.0); MEAN CORPUSCULAR HGB CONC 31.6 g/dl (32.0-36.5); MONO # 0.3 10^3/uL (0.0-0.8); MONO % 5.8 % (2.0-8.0); NEUTROPHILS # 3.5 10^3/uL (1.5-8.5); NEUTROPHILS % 61.8 % (36.0-66.0); PLATELET COUNT, AUTOMATED 120 10^3/uL (150-450); WHITE BLOOD COUNT 5.7 10^3/uL (4.0-10.0)
[2022-12-16 07:24] LABS: CALCIUM LEVEL 9.5 MG/DL (8.3-10.6); CREATININE FOR GFR 2.12 MG/DL (0.70-1.30); GLOMERULAR FILTRATION RATE 31.9 (>35); MAGNESIUM LEVEL 2.2 MG/DL (1.8-2.4); POTASSIUM SERUM 4.2 MMOL/L (3.5-5.1)
[2022-12-16] MEDS: PANTOPRAZOLE 40MG VIAL IV SCH (10:11)
[2022-12-16] MEDS: DOCUSATE SODIUM 100MG CAPSULE PO SCH ×2 (10:16→20:49)
[2022-12-16] MEDS: METOPROLOL SUCC *XL* 25MG TAB (TopROL *XL*) PO SCH (10:16)
[2022-12-16] MEDS: ATORVASTATIN 20 MG TAB PO SCH (10:17)
[2022-12-16] MEDS: CLOPIDOGREL 75 MG TAB PO SCH (10:17)
[2022-12-16] MEDS: ASPIRIN 81MG CHEW TABLET PO SCH (10:17)
[2022-12-16] MEDS: ISOSORBIDE MON. (IMDUR) 30MG XR TAB PO SCH (10:17)
[2022-12-16] MEDS: ERTAPENEM SODIUM 500 MG in NS 50 ML IV SCH (11:44)
[2022-12-16 14:00] VITALS: BP 131/63; TEMP 97.9; O2SAT 97
[2022-12-16 20:15] VITALS: BP 112/54; TEMP 97.9; O2SAT 98
[2022-12-16] MEDS: TAMSULOSIN 0.4 MG CAP PO SCH (20:49)
[2022-12-17 05:28] VITALS: BP 125/65; TEMP 97.3; O2SAT 97
[2022-12-17 06:35] LABS: BASO % 0.4 % (0.0-1.0); EOS # 0.3 10^3/uL (0.0-0.5); EOS % 4.6 % (0.0-3.0); HEMATOCRIT 31.4 % (42.0-52.0); HEMOGLOBIN 9.8 g/dl (13.5-17.5); LYMPH # 1.8 10^3/uL (1.5-5.0); MEAN CORPUSCULAR HEMOGLOBIN 29.9 pg (27.0-33.0); MEAN CORPUSCULAR HGB CONC 31.2 g/dl (32.0-36.5); MEAN CORPUSCULAR VOLUME 95.7 fl (80.0-96.0); MONO # 0.5 10^3/uL (0.0-0.8); MONO % 6.7 % (2.0-8.0); NEUTROPHILS # 4.7 10^3/uL (1.5-8.5); NEUTROPHILS % 62.8 % (36.0-66.0); PLATELET COUNT, AUTOMATED 117 10^3/uL (150-450); RED BLOOD COUNT 3.28 10^6/uL (4.30-6.10); WHITE BLOOD COUNT 7.4 10^3/uL (4.0-10.0)
[2022-12-17 07:14] LABS: CALCIUM LEVEL 9.2 MG/DL (8.3-10.6); CREATININE FOR GFR 2.11 MG/DL (0.70-1.30); GLOMERULAR FILTRATION RATE 32.1 (>35); MAGNESIUM LEVEL 2.1 MG/DL (1.8-2.4); POTASSIUM SERUM 4.4 MMOL/L (3.5-5.1)
[2022-12-17 09:20] VITALS: BP 151/82
[2022-12-17] MEDS: ASPIRIN 81MG CHEW TABLET PO SCH (09:21)
[2022-12-17] MEDS: ISOSORBIDE MON. (IMDUR) 30MG XR TAB PO SCH (09:21)
[2022-12-17] MEDS: METOPROLOL SUCC *XL* 25MG TAB (TopROL *XL*) PO SCH (09:21)
[2022-12-17] MEDS: PANTOPRAZOLE 40MG VIAL IV SCH (09:21)
[2022-12-17] MEDS: CLOPIDOGREL 75 MG TAB PO SCH (09:22)
[2022-12-17] MEDS: ATORVASTATIN 20 MG TAB PO SCH (09:22)
[2022-12-17] MEDS: DOCUSATE SODIUM 100MG CAPSULE PO SCH ×2 (09:22→19:35)
[2022-12-17] MEDS: ERTAPENEM SODIUM 500 MG in NS 50 ML IV SCH (11:22)
[2022-12-17 14:00] VITALS: BP 109/58; TEMP 97.7; O2SAT 98
[2022-12-17] MEDS: TAMSULOSIN 0.4 MG CAP PO SCH (19:35)
[2022-12-18 05:10] VITALS: BP 136/71; TEMP 98.1; O2SAT 99
[2022-12-18 09:35] VITALS: BP 132/67
[2022-12-18] MEDS: PANTOPRAZOLE 40MG VIAL IV SCH (09:36)
[2022-12-18] MEDS: ASPIRIN 81MG CHEW TABLET PO SCH (09:36)
[2022-12-18] MEDS: DOCUSATE SODIUM 100MG CAPSULE PO SCH ×2 (09:37→19:58)
[2022-12-18] MEDS: METOPROLOL SUCC *XL* 25MG TAB (TopROL *XL*) PO SCH (09:37)
[2022-12-18] MEDS: ATORVASTATIN 20 MG TAB PO SCH (09:37)
[2022-12-18] MEDS: ISOSORBIDE MON. (IMDUR) 30MG XR TAB PO SCH (09:37)
[2022-12-18] MEDS: CLOPIDOGREL 75 MG TAB PO SCH (09:37)
[2022-12-18] MEDS: TAMSULOSIN 0.4 MG CAP PO SCH ×2 (11:43→19:58)
[2022-12-19 06:00] VITALS: BP 131/67; TEMP 97.9; O2SAT 96
[2022-12-19] MEDS ORDERED: FLOM0.4C39 PO (07:54)
[2022-12-19] MEDS ORDERED: PANTOPRAZOLE 40MG TAB (PROTONIX) PO SCH (09:00)
[2022-12-19] MEDS: TAMSULOSIN 0.4 MG CAP PO SCH (09:08)
[2022-12-19] MEDS: DOCUSATE SODIUM 100MG CAPSULE PO SCH (09:08)
[2022-12-19 09:11] VITALS: BP 110/78
[2022-12-19] MEDS: METOPROLOL SUCC *XL* 25MG TAB (TopROL *XL*) PO SCH (09:11)
[2022-12-19] MEDS: CLOPIDOGREL 75 MG TAB PO SCH (09:12)
[2022-12-19] MEDS: ASPIRIN 81MG CHEW TABLET PO SCH (09:12)
[2022-12-19] MEDS: ISOSORBIDE MON. (IMDUR) 30MG XR TAB PO SCH (09:12)
[2022-12-19] MEDS: ATORVASTATIN 20 MG TAB PO SCH (09:12)
== END 2022-12-19 13:31 | DRG 871 ==
LOC: EDBD 09:06 → M ED 09:06 → M ED INP 14:26 → ENRESERV 14:41 → M PCU 16:30 → M MSPAV 12-14 22:35
PROVIDERS: ADMIT Student in an Organized Health Care Education/Training Program; ATTEND Student in an Organized Health Care Education/Training Program
PROC: B246ZZZ Ultrasonography of Right and Left Heart (ICD-10-PCS; principal; 2022-12-11)
DX: A41.59 Other Gram-negative sepsis (principal); I21.A1 Myocardial infarction type 2; N39.0 Urinary tract infection, site not specified; E87.20 Acidosis, unspecified; I50.22 Chronic systolic (congestive) heart failure; N18.4 Chronic kidney disease, stage 4 (severe); I13.0 Hypertensive heart and chronic kidney disease with heart failure and stage 1 through stage 4 chronic kidney disease, or unspecified chronic kidney disease; I47.20 Ventricular tachycardia, unspecified; D62 Acute posthemorrhagic anemia; E78.5 Hyperlipidemia, unspecified; I08.3 Combined rheumatic disorders of mitral, aortic and tricuspid valves; I25.5 Ischemic cardiomyopathy; I70.1 Atherosclerosis of renal artery; Z66 Do not resuscitate; I27.20 Pulmonary hypertension, unspecified; R00.1 Bradycardia, unspecified; R33.9 Retention of urine, unspecified; I73.9 Peripheral vascular disease, unspecified; I25.10 Atherosclerotic heart disease of native coronary artery without angina pectoris; B96.1 Klebsiella pneumoniae [K. pneumoniae] as the cause of diseases classified elsewhere; Z79.82 Long term (current) use of aspirin; Z79.02 Long term (current) use of antithrombotics/antiplatelets; Z79.899 Other long term (current) drug therapy; Z95.828 Presence of other vascular implants and grafts; Z85.46 Personal history of malignant neoplasm of prostate; Z98.1 Arthrodesis status; Z85.828 Personal history of other malignant neoplasm of skin

== ENCOUNTER 2023-01-06 10:12 | Inpatient (IN) | payer MEDICARE, MEDICAID ==
[~2023-01-06] VITALS: Ht 180.3 cm; Wt 65.7 kg
[~2023-01-06 10:12] MED LIST changes: +FLOM0.4C39 PO
[2023-01-06] MEDS ORDERED: NS 2,000 ML in IV 1 EA IV ONE (10:40)
[2023-01-06] MEDS ORDERED: ERTAPENEM SODIUM 1 GM in NS MINI-BAG PLUS 50 ML IV ONE (10:40)
[2023-01-06 11:16] LABS: VENOUS HCO3 18.5 MMOL/L (23.0-27.0); VENOUS O2 SATURATION 98.7 % (60.0-80.0); VENOUS PH 7.422 UNITS (7.330-7.430); VENOUS STANDARD HCO3 20.4 MMOL/L; VENOUS TOTAL CO2 19.4 MMOL/L (24.0-28.0)
[2023-01-06 11:25] LABS: BASO % 0.2 % (0.0-1.0); HEMATOCRIT 30.6 % (42.0-52.0); LYMPH # 0.3 10^3/uL (1.5-5.0); LYMPH % 3.7 % (24.0-44.0); MEAN CORPUSCULAR HEMOGLOBIN 31.4 pg (27.0-33.0); MEAN CORPUSCULAR HGB CONC 32.7 g/dl (32.0-36.5); MEAN CORPUSCULAR VOLUME 96.2 fl (80.0-96.0); MONO # 0.2 10^3/uL (0.0-0.8); MONO % 2.3 % (2.0-8.0); NEUTROPHILS # 8.6 10^3/uL (1.5-8.5); NEUTROPHILS % 93.5 % (36.0-66.0); PLATELET COUNT, AUTOMATED 142 10^3/uL (150-450); RED BLOOD COUNT 3.18 10^6/uL (4.30-6.10); WHITE BLOOD COUNT 9.2 10^3/uL (4.0-10.0)
[2023-01-06 11:38] LABS: INR 1.32; PROTHROMBIN TIME 16.1 SECONDS (12.5-14.5)
[2023-01-06 11:45] LABS: APPEARANCE, URINE CLOUDY (CLEAR); BACTERIA, URINE AUTO 2+ (NEGATIVE); BILIRUBIN, URINE AUTO NEGATIVE (NEGATIVE); BLOOD, URINE BLOOD 3+ (NEGATIVE); COLOR, URINE YELLOW (YELLOW); GLUCOSE, URINE (UA) AUTO NEGATIVE (NEGATIVE); KETONE, URINE AUTO NEGATIVE (NEGATIVE); LEUKOCYTE ESTERASE, URINE AUTO 3+ (NEGATIVE); MUCUS, URINE SMALL (NEGATIVE); NITRITE, URINE AUTO NEGATIVE (NEGATIVE); PROTEIN, URINE AUTO 2+ mg/dL (NEGATIVE); RBC, URINE AUTO TNTC /HPF (0-3); SPECIFIC GRAVITY URINE AUTO 1.012 (1.002-1.035); SQUAMOUS EPITHELIAL CELL UR AU 1 /HPF (0-6); UROBILINOGEN, URINE AUTO 0.2 mg/dL (0.0-2.0); WBC, URINE AUTO TNTC /HPF (0-3)
[2023-01-06 11:52] LABS: C REACTIVE PROTEIN QUANTITATIV 4.6 MG/DL (<1.0)
[2023-01-06 12:05] LABS: ALBUMIN 2.8 G/DL (3.2-5.2); BILIRUBIN,DIRECT 0.2 MG/DL (<0.4); BILIRUBIN,TOTAL 0.6 MG/DL (0.3-1.2); CALCIUM LEVEL 8.9 MG/DL (8.3-10.6); CK-MB VALUE MASS 5.9 NG/ML (<3.6); CREATININE FOR GFR 2.47 MG/DL (0.70-1.30); GLOMERULAR FILTRATION RATE 26.8 (>35); MB/CK RELATIVE INDEX 4.64 (< OR =4); POTASSIUM SERUM 4.4 MMOL/L (3.5-5.1); PROCALCITONIN 14.17 ng/ml
[2023-01-06 12:30] LABS: CK-MB VALUE MASS 11.3 NG/ML (<3.6)
[2023-01-06 13:06] LABS: MB/CK RELATIVE INDEX 9.04 (< OR =4)
[2023-01-06] MEDS ORDERED: HEPARIN SOD (PORCINE) 5000UNITS/ML 1ML VIAL/SYRINGE IV ONE (14:05)
[2023-01-06] MEDS ORDERED: HEPARIN DRIP 25,000 UNITS in IV 1 EA IV SCH ×2 (14:05→16:40)
[2023-01-06] MEDS ORDERED: MED REC IN PROGRESS XX SCH (14:10)
[2023-01-06] MEDS ORDERED: ACETAMINOPHEN TAB 650MG DOSE (2X325MG) PO PRN (15:40)
[2023-01-06] MEDS ORDERED: MOM 30ML SUSPENSION UDC PO PRN (15:40)
[2023-01-06] MEDS ORDERED: HEPARIN SOD (PORCINE) 5000UNITS/ML 1ML VIAL/SYRINGE IV PRN (16:40)
[2023-01-06] MEDS ORDERED: FLOM0.4C39 PO (16:47)
[2023-01-06] MEDS ORDERED: HOME MED LIST COMPLETE! XX SCH (16:50)
[2023-01-06 17:31] LABS: INR 1.48; PROTHROMBIN TIME 17.6 SECONDS (12.5-14.5)
[2023-01-06 21:11] LABS: INR 1.53
[2023-01-06 21:12] LABS: PARTIAL THROMBOPLASTIN TIME 76.4 SECONDS (24.8-34.2)
[2023-01-06 22:00] VITALS: O2SAT 95
[2023-01-06 22:41] VITALS: BP 111/55; TEMP 97.8; O2SAT 97
[2023-01-06] MEDS: ATORVASTATIN 20 MG TAB PO SCH (22:44)
[2023-01-06] MEDS: DOCUSATE SODIUM 100MG CAPSULE PO SCH (22:44)
[2023-01-06 23:00] VITALS: O2SAT 95
[2023-01-07] VITALS (25 sets, daily range): BP systolic 108–130; BP diastolic 57–60; TEMP 97.6–99.3; O2SAT 93–99
[2023-01-07 04:11] LABS: BASO % 0.1 % (0.0-1.0); EOS % 0.2 % (0.0-3.0); HEMATOCRIT 27.8 % (42.0-52.0); HEMOGLOBIN 8.9 g/dl (13.5-17.5); LYMPH # 0.7 10^3/uL (1.5-5.0); LYMPH % 7.9 % (24.0-44.0); MEAN CORPUSCULAR HEMOGLOBIN 30.4 pg (27.0-33.0); MEAN CORPUSCULAR VOLUME 94.9 fl (80.0-96.0); MONO # 0.4 10^3/uL (0.0-0.8); NEUTROPHILS # 7.6 10^3/uL (1.5-8.5); NEUTROPHILS % 86.2 % (36.0-66.0); PLATELET COUNT, AUTOMATED 101 10^3/uL (150-450); RED BLOOD COUNT 2.93 10^6/uL (4.30-6.10); WHITE BLOOD COUNT 8.8 10^3/uL (4.0-10.0)
[2023-01-07 05:46] LABS: ALBUMIN 2.5 G/DL (3.2-5.2); BILIRUBIN,TOTAL 0.6 MG/DL (0.3-1.2); CALCIUM LEVEL 8.8 MG/DL (8.3-10.6); CREATININE FOR GFR 2.38 MG/DL (0.70-1.30); GLOMERULAR FILTRATION RATE 27.9 (>35); POTASSIUM SERUM 3.9 MMOL/L (3.5-5.1); TOTAL PROTEIN 5.3 G/DL (5.7-8.2)
[2023-01-07] MEDS: PANTOPRAZOLE 40MG TAB (PROTONIX) PO SCH (09:03)
[2023-01-07] MEDS: ASPIRIN 81MG ENTERIC TABLET PO SCH (09:03)
[2023-01-07] MEDS: CLOPIDOGREL 75 MG TAB PO SCH (09:03)
[2023-01-07] MEDS: DOCUSATE SODIUM 100MG CAPSULE PO SCH ×2 (09:03→20:12)
[2023-01-07] MEDS: ERTAPENEM SODIUM 500 MG in NS 50 ML IV SCH (11:00)
[2023-01-07] MEDS ORDERED: ERTAPENEM SODIUM 1 GM in NS MINI-BAG PLUS 50 ML IV SCH (15:50)
[2023-01-07] MEDS: ATORVASTATIN 20 MG TAB PO SCH (20:12)
[2023-01-08] VITALS (22 sets, daily range): BP systolic 111–134; BP diastolic 56–67; PULSE 93; TEMP 97.1–98.6; O2SAT 86–99
[2023-01-08] MEDS ORDERED: HEPARIN SOD (PORCINE) 5000UNITS/ML 1ML VIAL/SYRINGE SQ SCH
[2023-01-08] MEDS ORDERED: HEPARIN SOD (PORCINE) 5000UNITS/ML 1ML VIAL/SYRINGE IV PRN ×2 (00:05)
[2023-01-08] MEDS: NITROGLYCERIN 0.4MG SUBL TABLET SL PRN ×2 (00:26→00:43)
[2023-01-08] MEDS: HEPARIN DRIP 25,000 UNITS in IV 1 EA IV SCH (00:40)
[2023-01-08 00:51] LABS: BASO % 0.2 % (0.0-1.0); EOS # 0.2 10^3/uL (0.0-0.5); EOS % 3.3 % (0.0-3.0); HEMATOCRIT 29.8 % (42.0-52.0); HEMOGLOBIN 9.3 g/dl (13.5-17.5); LYMPH % 16.4 % (24.0-44.0); MEAN CORPUSCULAR HEMOGLOBIN 29.7 pg (27.0-33.0); MEAN CORPUSCULAR HGB CONC 31.2 g/dl (32.0-36.5); MEAN CORPUSCULAR VOLUME 95.2 fl (80.0-96.0); MONO # 0.4 10^3/uL (0.0-0.8); MONO % 6.9 % (2.0-8.0); NEUTROPHILS # 4.4 10^3/uL (1.5-8.5); NEUTROPHILS % 72.9 % (36.0-66.0); PLATELET COUNT, AUTOMATED 109 10^3/uL (150-450); RED BLOOD COUNT 3.13 10^6/uL (4.30-6.10); WHITE BLOOD COUNT 6.1 10^3/uL (4.0-10.0)
[2023-01-08] MEDS ORDERED: METOPROLOL TART 25 MG TABLET PO ONE ×2 (01:00→02:00)
[2023-01-08 01:13] LABS: MB/CK RELATIVE INDEX 4.09 (< OR =4)
[2023-01-08 01:15] LABS: ALBUMIN 2.6 G/DL (3.2-5.2); BILIRUBIN,TOTAL 0.6 MG/DL (0.3-1.2); CALCIUM LEVEL 9.3 MG/DL (8.3-10.6); CREATININE FOR GFR 2.31 MG/DL (0.70-1.30); GLOMERULAR FILTRATION RATE 28.9 (>35); POTASSIUM SERUM 3.8 MMOL/L (3.5-5.1); TOTAL PROTEIN 5.8 G/DL (5.7-8.2)
[2023-01-08] MEDS ORDERED: METOPROLOL TART 12.5 MG PER 1/2 TAB PO ONE (03:00)
[2023-01-08 05:26] LABS: BASO % 0.1 % (0.0-1.0); EOS # 0.1 10^3/uL (0.0-0.5); EOS % 1.4 % (0.0-3.0); HEMATOCRIT 29.6 % (42.0-52.0); HEMOGLOBIN 9.3 g/dl (13.5-17.5); LYMPH # 1.1 10^3/uL (1.5-5.0); LYMPH % 15.1 % (24.0-44.0); MEAN CORPUSCULAR HEMOGLOBIN 30.9 pg (27.0-33.0); MEAN CORPUSCULAR HGB CONC 31.4 g/dl (32.0-36.5); MEAN CORPUSCULAR VOLUME 98.3 fl (80.0-96.0); MONO # 0.5 10^3/uL (0.0-0.8); MONO % 7.1 % (2.0-8.0); NEUTROPHILS # 5.5 10^3/uL (1.5-8.5); NEUTROPHILS % 75.9 % (36.0-66.0); PLATELET COUNT, AUTOMATED 111 10^3/uL (150-450); RED BLOOD COUNT 3.01 10^6/uL (4.30-6.10); WHITE BLOOD COUNT 7.3 10^3/uL (4.0-10.0)
[2023-01-08 05:57] LABS: CALCIUM LEVEL 9.1 MG/DL (8.3-10.6); CREATININE FOR GFR 2.26 MG/DL (0.70-1.30); GLOMERULAR FILTRATION RATE 29.6 (>35); POTASSIUM SERUM 4.1 MMOL/L (3.5-5.1)
[2023-01-08] MEDS: DOCUSATE SODIUM 100MG CAPSULE PO SCH ×2 (08:13→20:12)
[2023-01-08] MEDS: PANTOPRAZOLE 40MG TAB (PROTONIX) PO SCH (08:13)
[2023-01-08] MEDS: ASPIRIN 81MG ENTERIC TABLET PO SCH (08:13)
[2023-01-08] MEDS: CLOPIDOGREL 75 MG TAB PO SCH (08:13)
[2023-01-08] MEDS: METOPROLOL SUCC *XL* 25MG TAB (TopROL *XL*) PO SCH (09:30)
[2023-01-08 09:32] LABS: C REACTIVE PROTEIN QUANTITATIV 11.1 MG/DL (<1.0)
[2023-01-08 09:40] LABS: PROCALCITONIN 31.44 ng/ml
[2023-01-08] MEDS: ISOSORBIDE MON. (IMDUR) 30MG XR TAB PO SCH (10:05)
[2023-01-08] MEDS: TAMSULOSIN 0.4 MG CAP PO SCH (10:05)
[2023-01-08] MEDS: TORSEMIDE 20 MG TAB PO SCH (10:05)
[2023-01-08 10:10] LABS: ERYTHROCYTE SEDIMENTATION RATE 29 mm/hr (0-20)
[2023-01-08] MEDS: ERTAPENEM SODIUM 500 MG in NS 50 ML IV SCH (12:00)
[2023-01-08 16:50] LABS: INR 1.2; PROTHROMBIN TIME 14.9 SECONDS (12.5-14.5)
[2023-01-08] MEDS: ATORVASTATIN 20 MG TAB PO SCH (20:12)
[2023-01-08 21:28] LABS: INR 1.16; PROTHROMBIN TIME 14.5 SECONDS (12.5-14.5)
[2023-01-08 21:30] LABS: PARTIAL THROMBOPLASTIN TIME 87.2 SECONDS (24.8-34.2)
[2023-01-09] VITALS (27 sets, daily range): BP systolic 115–131; BP diastolic 56–59; TEMP 97.4–98; O2SAT 93–98
[2023-01-09] MEDS: HEPARIN DRIP 25,000 UNITS in IV 1 EA IV SCH (01:17)
[2023-01-09 05:51] LABS: BASO % 0.2 % (0.0-1.0); EOS # 0.3 10^3/uL (0.0-0.5); EOS % 4.2 % (0.0-3.0); HEMATOCRIT 28.8 % (42.0-52.0); LYMPH # 1.3 10^3/uL (1.5-5.0); LYMPH % 21.6 % (24.0-44.0); MEAN CORPUSCULAR HEMOGLOBIN 29.7 pg (27.0-33.0); MEAN CORPUSCULAR HGB CONC 31.3 g/dl (32.0-36.5); MONO # 0.4 10^3/uL (0.0-0.8); MONO % 6.6 % (2.0-8.0); NEUTROPHILS # 4.1 10^3/uL (1.5-8.5); NEUTROPHILS % 66.4 % (36.0-66.0); PLATELET COUNT, AUTOMATED 116 10^3/uL (150-450); RED BLOOD COUNT 3.03 10^6/uL (4.30-6.10); WHITE BLOOD COUNT 6.2 10^3/uL (4.0-10.0)
[2023-01-09 07:01] LABS: CALCIUM LEVEL 8.8 MG/DL (8.3-10.6); CREATININE FOR GFR 2.3 MG/DL (0.70-1.30); GLOMERULAR FILTRATION RATE 29.1 (>35); POTASSIUM SERUM 4.2 MMOL/L (3.5-5.1)
[2023-01-09] MEDS ORDERED: MEROPENEM INJ 1 GM in IV 1 EA IV SCH (07:05)
[2023-01-09] MEDS: PANTOPRAZOLE 40MG TAB (PROTONIX) PO SCH (08:46)
[2023-01-09] MEDS: DOCUSATE SODIUM 100MG CAPSULE PO SCH ×2 (08:47→20:54)
[2023-01-09] MEDS: TAMSULOSIN 0.4 MG CAP PO SCH (08:47)
[2023-01-09] MEDS: ASPIRIN 81MG ENTERIC TABLET PO SCH (08:47)
[2023-01-09] MEDS: METOPROLOL SUCC *XL* 25MG TAB (TopROL *XL*) PO SCH (08:47)
[2023-01-09] MEDS: ISOSORBIDE MON. (IMDUR) 30MG XR TAB PO SCH (08:47)
[2023-01-09] MEDS: CLOPIDOGREL 75 MG TAB PO SCH (08:47)
[2023-01-09] MEDS: TORSEMIDE 20 MG TAB PO SCH (08:47)
[2023-01-09] MEDS: MEROPENEM INJ 500 MG in IV 1 EA IV SCH ×2 (10:41→20:54)
[2023-01-09] MEDS: ATORVASTATIN 20 MG TAB PO SCH (20:53)
[2023-01-10] VITALS (30 sets, daily range): BP systolic 111–133; BP diastolic 56–65; TEMP 97.1–98.1; O2SAT 91–99
[2023-01-10 06:36] LABS: BASO % 0.3 % (0.0-1.0); EOS # 0.3 10^3/uL (0.0-0.5); HEMOGLOBIN 9.5 g/dl (13.5-17.5); LYMPH # 1.3 10^3/uL (1.5-5.0); LYMPH % 21.7 % (24.0-44.0); MEAN CORPUSCULAR HEMOGLOBIN 29.9 pg (27.0-33.0); MEAN CORPUSCULAR HGB CONC 31.7 g/dl (32.0-36.5); MEAN CORPUSCULAR VOLUME 94.3 fl (80.0-96.0); MONO # 0.4 10^3/uL (0.0-0.8); NEUTROPHILS % 65.4 % (36.0-66.0); PLATELET COUNT, AUTOMATED 118 10^3/uL (150-450); RED BLOOD COUNT 3.18 10^6/uL (4.30-6.10); WHITE BLOOD COUNT 6.1 10^3/uL (4.0-10.0)
[2023-01-10 07:08] LABS: CALCIUM LEVEL 9.3 MG/DL (8.3-10.6); CREATININE FOR GFR 2.12 MG/DL (0.70-1.30); GLOMERULAR FILTRATION RATE 31.9 (>35); POTASSIUM SERUM 4.3 MMOL/L (3.5-5.1)
[2023-01-10 08:39] LABS: PROCALCITONIN 8.91 ng/ml
[2023-01-10] MEDS: MEROPENEM INJ 500 MG in IV 1 EA IV SCH ×2 (08:45→21:24)
[2023-01-10] MEDS: PANTOPRAZOLE 40MG TAB (PROTONIX) PO SCH (08:46)
[2023-01-10] MEDS: DOCUSATE SODIUM 100MG CAPSULE PO SCH ×2 (08:46→21:24)
[2023-01-10] MEDS: ASPIRIN 81MG ENTERIC TABLET PO SCH (08:46)
[2023-01-10] MEDS: TAMSULOSIN 0.4 MG CAP PO SCH (08:46)
[2023-01-10] MEDS: TORSEMIDE 20 MG TAB PO SCH (08:46)
[2023-01-10] MEDS: CLOPIDOGREL 75 MG TAB PO SCH (08:46)
[2023-01-10] MEDS: ISOSORBIDE MON. (IMDUR) 30MG XR TAB PO SCH (08:46)
[2023-01-10] MEDS: METOPROLOL SUCC *XL* 25MG TAB (TopROL *XL*) PO SCH (08:47)
[2023-01-10] MEDS: HEPARIN SOD (PORCINE) 5000UNITS/ML 1ML VIAL/SYRINGE SQ SCH ×2 (13:19→21:24)
[2023-01-10] MEDS: ATORVASTATIN 20 MG TAB PO SCH (21:24)
[2023-01-11] VITALS (18 sets, daily range): BP systolic 113–153; BP diastolic 57–70; TEMP 97.2–98.6; O2SAT 92–98
[2023-01-11 04:14] LABS: BASO % 0.3 % (0.0-1.0); EOS # 0.4 10^3/uL (0.0-0.5); EOS % 5.5 % (0.0-3.0); HEMATOCRIT 30.4 % (42.0-52.0); HEMOGLOBIN 9.6 g/dl (13.5-17.5); LYMPH # 1.8 10^3/uL (1.5-5.0); LYMPH % 27.7 % (24.0-44.0); MEAN CORPUSCULAR HEMOGLOBIN 29.9 pg (27.0-33.0); MEAN CORPUSCULAR HGB CONC 31.6 g/dl (32.0-36.5); MEAN CORPUSCULAR VOLUME 94.7 fl (80.0-96.0); MONO # 0.5 10^3/uL (0.0-0.8); MONO % 6.9 % (2.0-8.0); NEUTROPHILS # 3.8 10^3/uL (1.5-8.5); NEUTROPHILS % 57.9 % (36.0-66.0); PLATELET COUNT, AUTOMATED 132 10^3/uL (150-450); RED BLOOD COUNT 3.21 10^6/uL (4.30-6.10); WHITE BLOOD COUNT 6.5 10^3/uL (4.0-10.0)
[2023-01-11 04:36] LABS: C REACTIVE PROTEIN QUANTITATIV 3.3 MG/DL (<1.0)
[2023-01-11 04:37] LABS: CREATININE FOR GFR 2.38 MG/DL (0.70-1.30); GLOMERULAR FILTRATION RATE 27.9 (>35); POTASSIUM SERUM 4.2 MMOL/L (3.5-5.1)
[2023-01-11 04:49] LABS: PROCALCITONIN 5.32 ng/ml
[2023-01-11] MEDS: HEPARIN SOD (PORCINE) 5000UNITS/ML 1ML VIAL/SYRINGE SQ SCH ×3 (05:55→21:53)
[2023-01-11] MEDS: CLOPIDOGREL 75 MG TAB PO SCH (09:00)
[2023-01-11] MEDS: DOCUSATE SODIUM 100MG CAPSULE PO SCH ×2 (09:00→21:54)
[2023-01-11] MEDS: ASPIRIN 81MG ENTERIC TABLET PO SCH (09:00)
[2023-01-11] MEDS: METOPROLOL SUCC *XL* 25MG TAB (TopROL *XL*) PO SCH ×2 (09:00→09:03)
[2023-01-11] MEDS: PANTOPRAZOLE 40MG TAB (PROTONIX) PO SCH (09:02)
[2023-01-11] MEDS: ISOSORBIDE MON. (IMDUR) 30MG XR TAB PO SCH (09:02)
[2023-01-11] MEDS: TAMSULOSIN 0.4 MG CAP PO SCH (09:09)
[2023-01-11] MEDS: TORSEMIDE 20 MG TAB PO SCH (09:09)
[2023-01-11] MEDS: MEROPENEM INJ 500 MG in IV 1 EA IV SCH ×2 (09:10→21:54)
[2023-01-11] MEDS: LR 1,000 ML IV SCH (15:08)
[2023-01-11] MEDS: ATORVASTATIN 20 MG TAB PO SCH (21:54)
[2023-01-11] MEDS ORDERED: ISOVUE-370 76% 100ML VIAL As Ordered ONE (22:00)
[2023-01-12] VITALS (9 sets, daily range): BP systolic 120–129; BP diastolic 58–61; TEMP 97.1–98.1; O2SAT 92–99
[2023-01-12] MEDS: LR 1,000 ML IV SCH (05:07)
[2023-01-12] MEDS: HEPARIN SOD (PORCINE) 5000UNITS/ML 1ML VIAL/SYRINGE SQ SCH (05:31)
[2023-01-12 06:24] LABS: BASO % 0.4 % (0.0-1.0); EOS # 0.4 10^3/uL (0.0-0.5); EOS % 4.6 % (0.0-3.0); HEMATOCRIT 30.6 % (42.0-52.0); HEMOGLOBIN 10.1 g/dl (13.5-17.5); LYMPH # 2.1 10^3/uL (1.5-5.0); MEAN CORPUSCULAR HEMOGLOBIN 31.8 pg (27.0-33.0); MEAN CORPUSCULAR VOLUME 96.2 fl (80.0-96.0); MONO # 0.5 10^3/uL (0.0-0.8); MONO % 5.9 % (2.0-8.0); NEUTROPHILS # 5.2 10^3/uL (1.5-8.5); NEUTROPHILS % 62.4 % (36.0-66.0); PLATELET COUNT, AUTOMATED 135 10^3/uL (150-450); RED BLOOD COUNT 3.18 10^6/uL (4.30-6.10); WHITE BLOOD COUNT 8.3 10^3/uL (4.0-10.0)
[2023-01-12 06:49] LABS: C REACTIVE PROTEIN QUANTITATIV 2.8 MG/DL (<1.0); CALCIUM LEVEL 9.3 MG/DL (8.3-10.6); CREATININE FOR GFR 2.29 MG/DL (0.70-1.30); GLOMERULAR FILTRATION RATE 29.2 (>35); POTASSIUM SERUM 4.4 MMOL/L (3.5-5.1)
[2023-01-12 06:56] LABS: PROCALCITONIN 2.79 ng/ml
[2023-01-12] MEDS: PANTOPRAZOLE 40MG TAB (PROTONIX) PO SCH (08:26)
[2023-01-12] MEDS: METOPROLOL SUCC *XL* 25MG TAB (TopROL *XL*) PO SCH (08:27)
[2023-01-12] MEDS: CLOPIDOGREL 75 MG TAB PO SCH (08:27)
[2023-01-12] MEDS: TORSEMIDE 20 MG TAB PO SCH (08:27)
[2023-01-12] MEDS: ASPIRIN 81MG ENTERIC TABLET PO SCH (08:27)
[2023-01-12] MEDS: ISOSORBIDE MON. (IMDUR) 30MG XR TAB PO SCH (08:27)
[2023-01-12] MEDS: DOCUSATE SODIUM 100MG CAPSULE PO SCH (08:27)
[2023-01-12] MEDS: TAMSULOSIN 0.4 MG CAP PO SCH (08:27)
[2023-01-12] MEDS ORDERED: CEFEPIME HCL 2 GM in D5W MINI-BAG PLUS 50 ML IV SCH (09:00)
[2023-01-12] MEDS ORDERED: LIDOCAINE 1% MDV 20ML VIAL As Ordered ONE (11:14)
[2023-01-12] MEDS ORDERED: PANT40TA29 PO (11:38)
[2023-01-12] MEDS ORDERED: CEFE2INJ2 IV (12:04)
== END 2023-01-12 13:53 | DRG 689 ==
LOC: EDBD 10:12 → M ED 10:12 → M ED INP 15:38 → ENRESERV 20:30 → M PCU 22:38
PROVIDERS: ADMIT Student in an Organized Health Care Education/Training Program; ATTEND Internal Medicine
PROC: 02HV33Z Insertion of Infusion Device into Superior Vena Cava, Percutaneous Approach (ICD-10-PCS; principal; 2023-01-12 13:00)
DX: N30.90 Cystitis, unspecified without hematuria (principal); I21.A1 Myocardial infarction type 2; N18.4 Chronic kidney disease, stage 4 (severe); E87.20 Acidosis, unspecified; I50.22 Chronic systolic (congestive) heart failure; I13.0 Hypertensive heart and chronic kidney disease with heart failure and stage 1 through stage 4 chronic kidney disease, or unspecified chronic kidney disease; R78.81 Bacteremia; I35.0 Nonrheumatic aortic (valve) stenosis; I25.2 Old myocardial infarction; I25.10 Atherosclerotic heart disease of native coronary artery without angina pectoris; Z66 Do not resuscitate; R00.1 Bradycardia, unspecified; I95.9 Hypotension, unspecified; B96.1 Klebsiella pneumoniae [K. pneumoniae] as the cause of diseases classified elsewhere; I73.9 Peripheral vascular disease, unspecified; I25.5 Ischemic cardiomyopathy; I70.1 Atherosclerosis of renal artery; E78.5 Hyperlipidemia, unspecified; H91.10 Presbycusis, unspecified ear; B96.5 Pseudomonas (aeruginosa) (mallei) (pseudomallei) as the cause of diseases classified elsewhere; Z87.891 Personal history of nicotine dependence; Z85.828 Personal history of other malignant neoplasm of skin; Z85.46 Personal history of malignant neoplasm of prostate; Z98.1 Arthrodesis status; Z98.41 Cataract extraction status, right eye; Z98.42 Cataract extraction status, left eye; Z79.82 Long term (current) use of aspirin; Z79.02 Long term (current) use of antithrombotics/antiplatelets; Z79.899 Other long term (current) drug therapy

== ENCOUNTER → 2023-01-16 | Outpatient (REF) ==
[~2023-01-16] MED LIST changes: +BISA10SU27 PR; +CEFE2INJ2 IV; +ELIQ2.5T PO; +FLEEENE12 PR; +METO1TAB87 PO; +MILKSUS3 PO; +PANT40TA29 PO
[2023-01-16 11:29] LABS: HEMOGLOBIN 9.7 g/dl (13.5-17.5); MEAN CORPUSCULAR HEMOGLOBIN 30.7 pg (27.0-33.0); MEAN CORPUSCULAR HGB CONC 31.3 g/dl (32.0-36.5); MEAN CORPUSCULAR VOLUME 98.1 fl (80.0-96.0); PLATELET COUNT, AUTOMATED 181 10^3/uL (150-450); RED BLOOD COUNT 3.16 10^6/uL (4.30-6.10); WHITE BLOOD COUNT 7.6 10^3/uL (4.0-10.0)
[2023-01-16 11:52] LABS: CALCIUM LEVEL 8.9 MG/DL (8.3-10.6); CREATININE FOR GFR 2.39 MG/DL (0.70-1.30); GLOMERULAR FILTRATION RATE 27.8 (>35); POTASSIUM SERUM 4.2 MMOL/L (3.5-5.1)
[2023-01-16 11:54] LABS: C REACTIVE PROTEIN QUANTITATIV 3.1 MG/DL (<1.0)
== END ==
PROVIDERS: ATTEND Internal Medicine
DX: Z02.2 Encounter for examination for admission to residential institution (principal); Z79.899 Other long term (current) drug therapy

== ENCOUNTER 2023-01-21 09:33 | Inpatient (IN) | payer MEDICARE, MEDICAID ==
[~2023-01-21] VITALS: Ht 175.3 cm; Wt 65.3 kg
[~2023-01-21 09:33] MED LIST changes: -BISA10SU27 PR; -ELIQ2.5T PO; -FLEEENE12 PR; -METO1TAB87 PO; -MILKSUS3 PO
[2023-01-21 10:27] LABS: BASO % 0.5 % (0.0-1.0); EOS # 0.4 10^3/uL (0.0-0.5); EOS % 5.2 % (0.0-3.0); HEMATOCRIT 33.1 % (42.0-52.0); HEMOGLOBIN 10.7 g/dl (13.5-17.5); LYMPH # 1.8 10^3/uL (1.5-5.0); LYMPH % 23.2 % (24.0-44.0); MEAN CORPUSCULAR HEMOGLOBIN 30.1 pg (27.0-33.0); MEAN CORPUSCULAR HGB CONC 32.3 g/dl (32.0-36.5); MONO # 0.5 10^3/uL (0.0-0.8); MONO % 6.8 % (2.0-8.0); NEUTROPHILS # 4.9 10^3/uL (1.5-8.5); NEUTROPHILS % 63.8 % (36.0-66.0); PLATELET COUNT, AUTOMATED 182 10^3/uL (150-450); RED BLOOD COUNT 3.56 10^6/uL (4.30-6.10); WHITE BLOOD COUNT 7.7 10^3/uL (4.0-10.0)
[2023-01-21 10:40] LABS: PARTIAL THROMBOPLASTIN TIME 32.3 SECONDS (24.8-34.2)
[2023-01-21] MEDS ORDERED: NS 500 ML IV ONE (10:45)
[2023-01-21 11:14] LABS: INR 1.25; PROTHROMBIN TIME 15.4 SECONDS (12.5-14.5)
[2023-01-21 11:43] LABS: RSV AMPLIFICATION NEGATIVE (NEGATIVE)
[2023-01-21] MEDS ORDERED: MED REC IN PROGRESS XX SCH (13:00)
[2023-01-21] MEDS ORDERED: ERTAPENEM SODIUM 1 GM in NS MINI-BAG PLUS 50 ML IV SCH (13:25)
[2023-01-21] MEDS ORDERED: MEROPENEM INJ 1 GM in IV 1 EA IV SCH (13:30)
[2023-01-21] MEDS ORDERED: BISA10SU27 PR (13:30)
[2023-01-21] MEDS ORDERED: PANT40TA29 PO (13:30)
[2023-01-21] MEDS ORDERED: FLEEENE12 PR (13:30)
[2023-01-21] MEDS ORDERED: MILKSUS3 PO (13:30)
[2023-01-21] MEDS: NS 1,000 ML IV SCH (13:30)
[2023-01-21] MEDS ORDERED: HOME MED LIST COMPLETE! XX SCH (13:40)
[2023-01-21] MEDS ORDERED: ACETAMINOPHEN TAB 650MG DOSE (2X325MG) PO PRN (14:00)
[2023-01-21] MEDS ORDERED: BISACODYL 10MG SUPP PR PRN (14:00)
[2023-01-21] MEDS ORDERED: FLEET ENEMA PR PRN (14:00)
[2023-01-21 14:25] VITALS: BP 143/63; TEMP 97.7; O2SAT 98
[2023-01-21] MEDS: MEROPENEM INJ 500 MG in IV 1 EA IV SCH (16:24)
[2023-01-21 16:34] LABS: OSMOLALITY URINE 351 MOSM/KG (50-1400)
[2023-01-21] MEDS: PANTOPRAZOLE 40MG TAB (PROTONIX) PO SCH (17:44)
[2023-01-21] MEDS: CLOPIDOGREL 75 MG TAB PO SCH (17:44)
[2023-01-21] MEDS: TAMSULOSIN 0.4 MG CAP PO SCH (17:44)
[2023-01-21] MEDS: ASPIRIN 81MG ENTERIC TABLET PO SCH (17:44)
[2023-01-21] MEDS: ATORVASTATIN 20 MG TAB PO SCH (17:50)
[2023-01-21] MEDS ORDERED: SODIUM CHLORIDE 0.9% INJ 10 ML SYR IV PRN (17:55)
[2023-01-21 19:46] VITALS: BP 131/67; TEMP 98.1; O2SAT 96
[2023-01-21] MEDS: SODIUM CHLORIDE 0.9% INJ 10 ML SYR IV SCH (20:15)
[2023-01-21] MEDS: HEPARIN SOD (PORCINE) 5000UNITS/ML 1ML VIAL/SYRINGE SQ SCH (20:15)
[2023-01-21] MEDS ORDERED: MOM 30ML SUSPENSION UDC PO PRN (21:00)
[2023-01-22] VITALS: BP 125/59; TEMP 97.4; O2SAT 96
[2023-01-22] MEDS: NS 1,000 ML IV SCH (02:29)
[2023-01-22] MEDS: MEROPENEM INJ 500 MG in IV 1 EA IV SCH ×2 (03:03→15:25)
[2023-01-22 03:29] VITALS: BP 128/65; TEMP 97.1; O2SAT 96
[2023-01-22 05:01] LABS: BASO % 0.5 % (0.0-1.0); EOS # 0.3 10^3/uL (0.0-0.5); EOS % 5.2 % (0.0-3.0); HEMATOCRIT 29.9 % (42.0-52.0); HEMOGLOBIN 9.5 g/dl (13.5-17.5); LYMPH # 1.4 10^3/uL (1.5-5.0); LYMPH % 22.7 % (24.0-44.0); MEAN CORPUSCULAR HEMOGLOBIN 29.6 pg (27.0-33.0); MEAN CORPUSCULAR HGB CONC 31.8 g/dl (32.0-36.5); MEAN CORPUSCULAR VOLUME 93.1 fl (80.0-96.0); MONO # 0.4 10^3/uL (0.0-0.8); MONO % 5.7 % (2.0-8.0); NEUTROPHILS # 4.1 10^3/uL (1.5-8.5); NEUTROPHILS % 65.4 % (36.0-66.0); PLATELET COUNT, AUTOMATED 146 10^3/uL (150-450); RED BLOOD COUNT 3.21 10^6/uL (4.30-6.10); WHITE BLOOD COUNT 6.3 10^3/uL (4.0-10.0)
[2023-01-22] MEDS: SODIUM CHLORIDE 0.9% INJ 10 ML SYR IV SCH ×2 (05:40→18:38)
[2023-01-22] MEDS: CLOPIDOGREL 75 MG TAB PO SCH ×2 (08:56→09:00)
[2023-01-22] MEDS: HEPARIN SOD (PORCINE) 5000UNITS/ML 1ML VIAL/SYRINGE SQ SCH ×2 (08:56→20:04)
[2023-01-22] MEDS: TAMSULOSIN 0.4 MG CAP PO SCH ×2 (08:56→09:00)
[2023-01-22] MEDS: PANTOPRAZOLE 40MG TAB (PROTONIX) PO SCH ×2 (08:56→09:00)
[2023-01-22] MEDS: ASPIRIN 81MG ENTERIC TABLET PO SCH ×2 (08:56→09:00)
[2023-01-22] MEDS ORDERED: METOPROLOL SUCC *XL* 25MG TAB (TopROL *XL*) PO SCH (09:00)
[2023-01-22] MEDS ORDERED: ISOSORBIDE MON. (IMDUR) 30MG XR TAB PO SCH (09:00)
[2023-01-22 12:00] VITALS: BP 134/62; TEMP 98.4; O2SAT 98
[2023-01-22 12:06] LABS: CREATININE FOR GFR 3.6 MG/DL (0.7-1.5); GLOMERULAR FILTRATION RATE 17.3 (>35)
[2023-01-22 12:07] LABS: CALCIUM LEVEL 9.7 MG/DL (8.8-10.2); MAGNESIUM LEVEL 1.7 MG/DL (1.7-2.2)
[2023-01-22 12:09] LABS: ALKALINE PHOSPHATASE 135 U/L (40-129); ALT/SGPT 15 U/L (1-41); AST/SGOT 15 U/L (5-40); BILIRUBIN,TOTAL < 0.7 MG/DL (0.2-1.3); CALCIUM LEVEL 10.1 MG/DL (8.8-10.2); CARBON DIOXIDE LEVEL 19 MEQ/L (22-30); CHLORIDE LEVEL 105 MEQ/L (98-107); CREATININE FOR GFR 3.8 MG/DL (0.7-1.5); GLOMERULAR FILTRATION RATE 16.3 (>35); GLUCOSE, FASTING 98 MG/DL; POTASSIUM SERUM 4.7 MEQ/L (3.6-5.0); SODIUM LEVEL 141 MEQ/L (134-153)
[2023-01-22 12:10] LABS: ALBUMIN 3.9 G/DL (3.9-5.0); BILIRUBIN,DIRECT < 0.2 MG/DL (0.1-0.4); THYROID STIMULATING HORMONE 6.67 UIU/ML (0.47-5.01); TOTAL PROTEIN 7.1 G/DL (6.3-8.2)
[2023-01-22] MEDS: SODIUM BICARBONATE 75 MEQ in D5W/0.45% SODIUM CHLORIDE 1,000 ML IV SCH (12:30)
[2023-01-22 15:16] LABS: BLOOD UREA NITROGEN 65 MG/DL (7-21)
[2023-01-22 15:53] VITALS: BP 141/68; TEMP 98; O2SAT 98
[2023-01-22] MEDS: ATORVASTATIN 20 MG TAB PO SCH (18:00)
[2023-01-22 19:11] VITALS: BP 142/63; TEMP 98.5; O2SAT 97
[2023-01-22 23:37] VITALS: BP 125/67; TEMP 97.8; O2SAT 96
[2023-01-23] MEDS: SODIUM BICARBONATE 75 MEQ in D5W/0.45% SODIUM CHLORIDE 1,000 ML IV SCH ×2 (01:11→14:21)
[2023-01-23 03:28] VITALS: BP 127/60; TEMP 98; O2SAT 97
[2023-01-23] MEDS: MEROPENEM INJ 500 MG in IV 1 EA IV SCH ×2 (03:48→16:51)
[2023-01-23] MEDS: SODIUM CHLORIDE 0.9% INJ 10 ML SYR IV SCH ×2 (05:51→17:35)
[2023-01-23 07:32] VITALS: BP 138/63; TEMP 97.8; O2SAT 97
[2023-01-23] MEDS ORDERED: METOPROLOL SUCC *XL* 25MG TAB (TopROL *XL*) PO SCH (09:00)
[2023-01-23 09:17] LABS: BASO % 0.5 % (0.0-1.0); EOS # 0.4 10^3/uL (0.0-0.5); EOS % 7.6 % (0.0-3.0); HEMATOCRIT 27.7 % (42.0-52.0); LYMPH # 1.1 10^3/uL (1.5-5.0); LYMPH % 19.2 % (24.0-44.0); MEAN CORPUSCULAR HEMOGLOBIN 30.6 pg (27.0-33.0); MEAN CORPUSCULAR HGB CONC 32.5 g/dl (32.0-36.5); MEAN CORPUSCULAR VOLUME 94.2 fl (80.0-96.0); MONO # 0.5 10^3/uL (0.0-0.8); MONO % 8.1 % (2.0-8.0); NEUTROPHILS # 3.7 10^3/uL (1.5-8.5); NEUTROPHILS % 64.1 % (36.0-66.0); PLATELET COUNT, AUTOMATED 157 10^3/uL (150-450); RED BLOOD COUNT 2.94 10^6/uL (4.30-6.10); WHITE BLOOD COUNT 5.8 10^3/uL (4.0-10.0)
[2023-01-23] MEDS: HEPARIN SOD (PORCINE) 5000UNITS/ML 1ML VIAL/SYRINGE SQ SCH (09:57)
[2023-01-23 11:53] VITALS: BP 126/64; TEMP 98.2; O2SAT 96
[2023-01-23 12:11] LABS: FREE T4 1.05 NG/DL (0.93-1.70); THYROID STIMULATING HORMONE 6.51 UIU/ML (0.47-5.01)
[2023-01-23] MEDS ORDERED: MAG SULF 1GM/100ML (MAG RUN) 1 GM in IV 1 EA IV ONE (13:00)
[2023-01-23] MEDS: PANTOPRAZOLE 40MG TAB (PROTONIX) PO SCH (13:13)
[2023-01-23] MEDS: ASPIRIN 81MG ENTERIC TABLET PO SCH (13:13)
[2023-01-23] MEDS: CLOPIDOGREL 75 MG TAB PO SCH (13:13)
[2023-01-23] MEDS: TAMSULOSIN 0.4 MG CAP PO SCH (13:14)
[2023-01-23 13:37] LABS: CREATININE FOR GFR 3.1 MG/DL (0.7-1.5); GLOMERULAR FILTRATION RATE 20.6 (>35); POTASSIUM SERUM 3.7 MEQ/L (3.6-5.0)
[2023-01-23 13:38] LABS: CALCIUM LEVEL 9.2 MG/DL (8.8-10.2)
[2023-01-23 13:39] LABS: MAGNESIUM LEVEL 1.7 MG/DL (1.7-2.2)
[2023-01-23 15:42] VITALS: BP 114/71; TEMP 97.2; O2SAT 94
[2023-01-23] MEDS: ATORVASTATIN 20 MG TAB PO SCH (17:35)
[2023-01-23 19:12] VITALS: BP 113/61; TEMP 97.6; O2SAT 98
[2023-01-23] MEDS: APIXABAN 2.5 MG TAB (ELIQUIS) PO SCH (21:10)
[2023-01-24 00:13] VITALS: BP 107/57; TEMP 97.9; O2SAT 93
[2023-01-24] MEDS: SODIUM BICARBONATE 75 MEQ in D5W/0.45% SODIUM CHLORIDE 1,000 ML IV SCH (02:47)
[2023-01-24] MEDS: MEROPENEM INJ 500 MG in IV 1 EA IV SCH (03:01)
[2023-01-24 04:12] VITALS: BP 120/56; TEMP 97.2; O2SAT 97
[2023-01-24 05:59] LABS: BASO % 0.6 % (0.0-1.0); EOS # 0.3 10^3/uL (0.0-0.5); EOS % 6.1 % (0.0-3.0); LYMPH # 1.3 10^3/uL (1.5-5.0); LYMPH % 26.2 % (24.0-44.0); MEAN CORPUSCULAR HEMOGLOBIN 29.2 pg (27.0-33.0); MEAN CORPUSCULAR VOLUME 94.2 fl (80.0-96.0); MONO # 0.5 10^3/uL (0.0-0.8); MONO % 9.2 % (2.0-8.0); NEUTROPHILS % 57.5 % (36.0-66.0); PLATELET COUNT, AUTOMATED 148 10^3/uL (150-450); RED BLOOD COUNT 3.08 10^6/uL (4.30-6.10); WHITE BLOOD COUNT 5.1 10^3/uL (4.0-10.0)
[2023-01-24] MEDS: SODIUM CHLORIDE 0.9% INJ 10 ML SYR IV SCH (06:00)
[2023-01-24 06:22] LABS: CALCIUM LEVEL 9.1 MG/DL (8.3-10.6); CREATININE FOR GFR 2.96 MG/DL (0.70-1.30); GLOMERULAR FILTRATION RATE 21.7 (>35); MAGNESIUM LEVEL 1.9 MG/DL (1.8-2.4); POTASSIUM SERUM 3.9 MMOL/L (3.5-5.1)
[2023-01-24] MEDS ORDERED: NS 1,000 ML IV SCH (07:05)
[2023-01-24 07:38] VITALS: BP 137/66; TEMP 97.2; O2SAT 98
[2023-01-24] MEDS ORDERED: METOPROLOL TART 12.5 MG PER 1/2 TAB PO SCH (09:00)
[2023-01-24 09:15] VITALS: BP 137/66
[2023-01-24] MEDS: TAMSULOSIN 0.4 MG CAP PO SCH (09:15)
[2023-01-24] MEDS: ASPIRIN 81MG ENTERIC TABLET PO SCH (09:15)
[2023-01-24] MEDS: PANTOPRAZOLE 40MG TAB (PROTONIX) PO SCH (09:16)
[2023-01-24] MEDS: APIXABAN 2.5 MG TAB (ELIQUIS) PO SCH (09:16)
[2023-01-24] MEDS ORDERED: METO1TAB87 PO ×2 (10:15→11:17)
[2023-01-24] MEDS ORDERED: ELIQ2.5T PO (10:15)
== END 2023-01-24 14:11 | DRG 682 ==
LOC: M ED 09:33 → M ED INP 13:01 → EDBEDREQ 13:30 → M PCU 14:06
PROVIDERS: ADMIT Internal Medicine; ATTEND Internal Medicine
PROC: B246ZZZ Ultrasonography of Right and Left Heart (ICD-10-PCS; principal; 2023-01-22)
DX: N17.9 Acute kidney failure, unspecified (principal); G92.8 Other toxic encephalopathy; I50.22 Chronic systolic (congestive) heart failure; I13.0 Hypertensive heart and chronic kidney disease with heart failure and stage 1 through stage 4 chronic kidney disease, or unspecified chronic kidney disease; E87.20 Acidosis, unspecified; R47.01 Aphasia; I08.3 Combined rheumatic disorders of mitral, aortic and tricuspid valves; I25.10 Atherosclerotic heart disease of native coronary artery without angina pectoris; I25.2 Old myocardial infarction; I25.5 Ischemic cardiomyopathy; N18.9 Chronic kidney disease, unspecified; E78.5 Hyperlipidemia, unspecified; H91.10 Presbycusis, unspecified ear; D47.2 Monoclonal gammopathy; I70.1 Atherosclerosis of renal artery; Z66 Do not resuscitate; N18.4 Chronic kidney disease, stage 4 (severe); M25.562 Pain in left knee; M47.812 Spondylosis without myelopathy or radiculopathy, cervical region; K59.00 Constipation, unspecified; N40.0 Benign prostatic hyperplasia without lower urinary tract symptoms; K21.9 Gastro-esophageal reflux disease without esophagitis; R00.1 Bradycardia, unspecified; D69.6 Thrombocytopenia, unspecified; I73.9 Peripheral vascular disease, unspecified; I48.0 Paroxysmal atrial fibrillation; I27.20 Pulmonary hypertension, unspecified; Z79.02 Long term (current) use of antithrombotics/antiplatelets; Z85.828 Personal history of other malignant neoplasm of skin; Z79.82 Long term (current) use of aspirin; Z79.899 Other long term (current) drug therapy; Z98.41 Cataract extraction status, right eye; Z85.46 Personal history of malignant neoplasm of prostate; Z98.1 Arthrodesis status; Z96.0 Presence of urogenital implants; Z98.42 Cataract extraction status, left eye; T36.1X5A Adverse effect of cephalosporins and other beta-lactam antibiotics, initial encounter

== ENCOUNTER → 2023-01-23 | Outpatient (REF) | payer MEDICARE, MEDICAID ==
[~2023-01-23] MED LIST changes: +BISA10SU27 PR; +ELIQ2.5T PO; +FLEEENE12 PR; +METO1TAB87 PO; +MILKSUS3 PO
== END ==
PROVIDERS: ATTEND Internal Medicine Nephrology
DX: N18.32 Chronic kidney disease, stage 3b (principal); Z53.8 Procedure and treatment not carried out for other reasons

== ENCOUNTER → 2023-01-23 | Outpatient (REF) | PROVIDERS: ATTEND Physician Assistant | DX: N39.0 Urinary tract infection, site not specified (principal); Z53.8 Procedure and treatment not carried out for other reasons ==

== ENCOUNTER → 2023-01-25 | Outpatient (REF) | payer MEDICARE, MEDICAID ==
[2023-01-25 11:39] LABS: HEMATOCRIT 29.5 % (42.0-52.0); HEMOGLOBIN 9.3 g/dl (13.5-17.5); MEAN CORPUSCULAR HEMOGLOBIN 30.8 pg (27.0-33.0); MEAN CORPUSCULAR HGB CONC 31.5 g/dl (32.0-36.5); MEAN CORPUSCULAR VOLUME 97.7 fl (80.0-96.0); PLATELET COUNT, AUTOMATED 155 10^3/uL (150-450); RED BLOOD COUNT 3.02 10^6/uL (4.30-6.10); WHITE BLOOD COUNT 5.7 10^3/uL (4.0-10.0)
[2023-01-25 12:05] LABS: C REACTIVE PROTEIN QUANTITATIV 4.3 MG/DL (<1.0)
[2023-01-25 12:06] LABS: CALCIUM LEVEL 9.3 MG/DL (8.3-10.6); CREATININE FOR GFR 2.78 MG/DL (0.70-1.30); GLOMERULAR FILTRATION RATE 23.3 (>35); POTASSIUM SERUM 3.9 MMOL/L (3.5-5.1)
== END ==
PROVIDERS: ATTEND Internal Medicine
DX: N39.0 Urinary tract infection, site not specified (principal)

== ENCOUNTER → 2023-01-30 | Outpatient (REF) ==
[2023-01-30 10:56] LABS: HEMATOCRIT 29.7 % (42.0-52.0); HEMOGLOBIN 9.5 g/dl (13.5-17.5); MEAN CORPUSCULAR HEMOGLOBIN 31.4 pg (27.0-33.0); PLATELET COUNT, AUTOMATED 156 10^3/uL (150-450); RED BLOOD COUNT 3.03 10^6/uL (4.30-6.10); WHITE BLOOD COUNT 6.3 10^3/uL (4.0-10.0)
[2023-01-30 11:12] LABS: C REACTIVE PROTEIN QUANTITATIV 1.8 MG/DL (<1.0)
[2023-01-30 11:14] LABS: CALCIUM LEVEL 9.4 MG/DL (8.3-10.6); CREATININE FOR GFR 2.46 MG/DL (0.70-1.30); GLOMERULAR FILTRATION RATE 26.9 (>35); POTASSIUM SERUM 4.8 MMOL/L (3.5-5.1)
== END ==
PROVIDERS: ATTEND Physician Assistant
DX: N39.0 Urinary tract infection, site not specified (principal)

== ENCOUNTER → 2023-01-31 | Outpatient (REF) | payer MEDICARE, MEDICAID | PROVIDERS: ATTEND Internal Medicine | DX: I51.7 Cardiomegaly (principal) ==

== ENCOUNTER → 2023-01-31 | Outpatient (REF) | payer MEDICARE, MEDICAID ==
[2023-01-31 16:35] LABS: HEMATOCRIT 31.1 % (42.0-52.0); HEMOGLOBIN 10.3 g/dl (13.5-17.5); MEAN CORPUSCULAR HEMOGLOBIN 33.4 pg (27.0-33.0); MEAN CORPUSCULAR HGB CONC 33.1 g/dl (32.0-36.5); PLATELET COUNT, AUTOMATED 191 10^3/uL (150-450); RED BLOOD COUNT 3.08 10^6/uL (4.30-6.10); WHITE BLOOD COUNT 8.1 10^3/uL (4.0-10.0)
[2023-01-31 16:58] LABS: CALCIUM LEVEL 9.5 MG/DL (8.3-10.6); CREATININE FOR GFR 2.37 MG/DL (0.70-1.30); GLOMERULAR FILTRATION RATE 28.1 (>35); POTASSIUM SERUM 4.7 MMOL/L (3.5-5.1)
== END ==
PROVIDERS: ATTEND Physician Assistant
DX: I50.9 Heart failure, unspecified (principal)

== ENCOUNTER → 2023-02-01 | Outpatient (REF) | PROVIDERS: ATTEND Physician Assistant | DX: R05.9 Cough, unspecified (principal) ==

== ENCOUNTER → 2023-02-01 | Outpatient (REF) | PROVIDERS: ATTEND Physician Assistant | DX: R05.9 Cough, unspecified (principal) ==

== ENCOUNTER → 2023-02-02 | Outpatient (REF) | payer MEDICARE, MEDICAID ==
[2023-02-02 16:00] LABS: HEMATOCRIT 27.5 % (42.0-52.0); HEMOGLOBIN 9.1 g/dl (13.5-17.5); MEAN CORPUSCULAR HEMOGLOBIN 32.6 pg (27.0-33.0); MEAN CORPUSCULAR HGB CONC 33.1 g/dl (32.0-36.5); MEAN CORPUSCULAR VOLUME 98.6 fl (80.0-96.0); PLATELET COUNT, AUTOMATED 166 10^3/uL (150-450); RED BLOOD COUNT 2.79 10^6/uL (4.30-6.10); WHITE BLOOD COUNT 6.7 10^3/uL (4.0-10.0)
== END ==
PROVIDERS: ATTEND Physician Assistant
DX: I50.9 Heart failure, unspecified (principal)

== ENCOUNTER → 2023-02-06 | Outpatient (REF) ==
[2023-02-06 11:28] LABS: HEMATOCRIT 31.2 % (42.0-52.0); MEAN CORPUSCULAR HEMOGLOBIN 30.4 pg (27.0-33.0); MEAN CORPUSCULAR HGB CONC 32.1 g/dl (32.0-36.5); MEAN CORPUSCULAR VOLUME 94.8 fl (80.0-96.0); PLATELET COUNT, AUTOMATED 194 10^3/uL (150-450); RED BLOOD COUNT 3.29 10^6/uL (4.30-6.10); WHITE BLOOD COUNT 6.1 10^3/uL (4.0-10.0)
[2023-02-06 11:53] LABS: C REACTIVE PROTEIN QUANTITATIV 2.5 MG/DL (<1.0)
[2023-02-06 11:55] LABS: CALCIUM LEVEL 8.8 MG/DL (8.3-10.6); CREATININE FOR GFR 2.79 MG/DL (0.70-1.30); GLOMERULAR FILTRATION RATE 23.2 (>35)
== END ==
PROVIDERS: ATTEND Physician Assistant
DX: N39.0 Urinary tract infection, site not specified (principal)

== ENCOUNTER → 2023-02-07 | Outpatient (REF) | payer MEDICARE, MEDICAID ==
[2023-02-07 15:35] LABS: HEMATOCRIT 33.1 % (42.0-52.0); HEMOGLOBIN 10.7 g/dl (13.5-17.5); MEAN CORPUSCULAR HEMOGLOBIN 31.8 pg (27.0-33.0); MEAN CORPUSCULAR HGB CONC 32.3 g/dl (32.0-36.5); MEAN CORPUSCULAR VOLUME 98.5 fl (80.0-96.0); PLATELET COUNT, AUTOMATED 216 10^3/uL (150-450); RED BLOOD COUNT 3.36 10^6/uL (4.30-6.10); WHITE BLOOD COUNT 7.9 10^3/uL (4.0-10.0)
[2023-02-07 15:52] LABS: CALCIUM LEVEL 9.3 MG/DL (8.3-10.6); CREATININE FOR GFR 2.87 MG/DL (0.70-1.30); GLOMERULAR FILTRATION RATE 22.5 (>35); POTASSIUM SERUM 4.6 MMOL/L (3.5-5.1)
== END ==
PROVIDERS: ATTEND Internal Medicine
DX: I50.9 Heart failure, unspecified (principal)

== ENCOUNTER → 2023-02-07 | Outpatient (REF) | payer MEDICARE, MEDICAID | PROVIDERS: ATTEND Internal Medicine | DX: J44.9 Chronic obstructive pulmonary disease, unspecified (principal) ==

== ENCOUNTER → 2023-02-08 | Outpatient (REF) | payer MEDICARE, MEDICAID ==
[2023-02-08 11:21] LABS: HEMOGLOBIN 9.5 g/dl (13.5-17.5); MEAN CORPUSCULAR HEMOGLOBIN 30.7 pg (27.0-33.0); MEAN CORPUSCULAR HGB CONC 31.7 g/dl (32.0-36.5); MEAN CORPUSCULAR VOLUME 97.1 fl (80.0-96.0); PLATELET COUNT, AUTOMATED 163 10^3/uL (150-450); RED BLOOD COUNT 3.09 10^6/uL (4.30-6.10); WHITE BLOOD COUNT 5.7 10^3/uL (4.0-10.0)
[2023-02-08 11:49] LABS: CREATININE FOR GFR 2.9 MG/DL (0.70-1.30); GLOMERULAR FILTRATION RATE 22.2 (>35); POTASSIUM SERUM 4.5 MMOL/L (3.5-5.1)
== END ==
PROVIDERS: ATTEND Physician Assistant
DX: I50.9 Heart failure, unspecified (principal)

== ENCOUNTER → 2023-02-10 | Outpatient (REF) | payer MEDICARE, MEDICAID | PROVIDERS: ATTEND Internal Medicine | DX: I50.9 Heart failure, unspecified (principal) ==

== ENCOUNTER → 2023-02-10 | Outpatient (REF) ==
[2023-02-10 13:56] LABS: CALCIUM LEVEL 8.5 MG/DL (8.3-10.6); CREATININE FOR GFR 2.72 MG/DL (0.70-1.30); GLOMERULAR FILTRATION RATE 23.9 (>35); POTASSIUM SERUM 4.3 MMOL/L (3.5-5.1)
[2023-02-10 14:14] LABS: HEMOGLOBIN 9.1 g/dl (13.5-17.5); MEAN CORPUSCULAR HEMOGLOBIN 31.4 pg (27.0-33.0); MEAN CORPUSCULAR HGB CONC 32.5 g/dl (32.0-36.5); MEAN CORPUSCULAR VOLUME 96.6 fl (80.0-96.0); PLATELET COUNT, AUTOMATED 157 10^3/uL (150-450); WHITE BLOOD COUNT 6.2 10^3/uL (4.0-10.0)
== END ==
PROVIDERS: ATTEND Physician Assistant
DX: I50.9 Heart failure, unspecified (principal)

== ENCOUNTER → 2023-02-13 | Outpatient (REF) ==
[2023-02-13 11:30] LABS: HEMOGLOBIN 10.5 g/dl (13.5-17.5); MEAN CORPUSCULAR HEMOGLOBIN 30.6 pg (27.0-33.0); MEAN CORPUSCULAR HGB CONC 31.8 g/dl (32.0-36.5); MEAN CORPUSCULAR VOLUME 96.2 fl (80.0-96.0); PLATELET COUNT, AUTOMATED 191 10^3/uL (150-450); RED BLOOD COUNT 3.43 10^6/uL (4.30-6.10); WHITE BLOOD COUNT 7.6 10^3/uL (4.0-10.0)
[2023-02-13 11:52] LABS: CALCIUM LEVEL 9.5 MG/DL (8.3-10.6); CREATININE FOR GFR 2.63 MG/DL (0.70-1.30); GLOMERULAR FILTRATION RATE 24.9 (>35); POTASSIUM SERUM 4.5 MMOL/L (3.5-5.1)
== END ==
PROVIDERS: ATTEND Physician Assistant
DX: N39.0 Urinary tract infection, site not specified (principal)

== ENCOUNTER 2023-02-18 09:34 | Emergency (ER) | payer MEDICARE, MEDICAID ==
[~2023-02-18] VITALS: Ht 182.9 cm; Wt 67.3 kg
[2023-02-18] MEDS ORDERED: ASPIRIN 81MG CHEW TABLET PO ONE (10:00)
[2023-02-18 10:20] LABS: BASO % 0.2 % (0.0-1.0); EOS # 0.1 10^3/uL (0.0-0.5); EOS % 2.7 % (0.0-3.0); HEMATOCRIT 30.5 % (42.0-52.0); HEMOGLOBIN 9.5 g/dl (13.5-17.5); LYMPH # 0.9 10^3/uL (1.5-5.0); LYMPH % 16.6 % (24.0-44.0); MEAN CORPUSCULAR HEMOGLOBIN 29.9 pg (27.0-33.0); MEAN CORPUSCULAR HGB CONC 31.1 g/dl (32.0-36.5); MEAN CORPUSCULAR VOLUME 95.9 fl (80.0-96.0); MONO # 0.2 10^3/uL (0.0-0.8); MONO % 4.6 % (2.0-8.0); NEUTROPHILS # 3.9 10^3/uL (1.5-8.5); NEUTROPHILS % 74.4 % (36.0-66.0); PLATELET COUNT, AUTOMATED 139 10^3/uL (150-450); RED BLOOD COUNT 3.18 10^6/uL (4.30-6.10); WHITE BLOOD COUNT 5.2 10^3/uL (4.0-10.0)
[2023-02-18 10:34] LABS: INR 1.43
[2023-02-18 10:42] LABS: CK-MB VALUE MASS 1.4 NG/ML (<3.6)
[2023-02-18 10:44] LABS: ALBUMIN 3.1 G/DL (3.2-5.2); BILIRUBIN,DIRECT 0.1 MG/DL (<0.4); BILIRUBIN,TOTAL 0.4 MG/DL (0.3-1.2); CALCIUM LEVEL 9.3 MG/DL (8.3-10.6); CREATININE FOR GFR 2.7 MG/DL (0.70-1.30); GLOMERULAR FILTRATION RATE 24.1 (>35); POTASSIUM SERUM 4.5 MMOL/L (3.5-5.1); TOTAL PROTEIN 6.8 G/DL (5.7-8.2)
[2023-02-18 10:46] LABS: THYROID STIMULATING HORMONE 6.101 uIU/ML (0.55-4.78)
[2023-02-18 10:47] LABS: MB/CK RELATIVE INDEX 3.04 (< OR =4)
[2023-02-18 11:35] LABS: CK-MB VALUE MASS 1.6 NG/ML (<3.6)
[2023-02-18 11:38] LABS: MB/CK RELATIVE INDEX 3.55 (< OR =4)
[2023-02-18 13:45] LABS: CK-MB VALUE MASS 1.5 NG/ML (<3.6)
[2023-02-18 13:52] LABS: MB/CK RELATIVE INDEX 3.48 (< OR =4)
[2023-02-18] MEDS ORDERED: ISOS1TAB36 PO (14:36)
[2023-02-18] MEDS ORDERED: NITR4TASL SL (14:37)
[2023-02-18 16:01] VITALS: BP 132/55; TEMP 97.7; O2SAT 97
== END 2023-02-18 16:13 | disposition home or self-care (01) ==
LOC: M ED 09:34
DX: R07.9 Chest pain, unspecified (principal); I25.2 Old myocardial infarction; I25.10 Atherosclerotic heart disease of native coronary artery without angina pectoris; I10 Essential (primary) hypertension; E78.5 Hyperlipidemia, unspecified; N18.9 Chronic kidney disease, unspecified; Z87.891 Personal history of nicotine dependence; Z79.82 Long term (current) use of aspirin; Z79.899 Other long term (current) drug therapy

== ENCOUNTER → 2023-02-20 | Outpatient (REF) ==
[~2023-02-20] MED LIST changes: +ISOS1TAB36 PO; +NITR4TASL SL
== END ==
PROVIDERS: ATTEND Physician Assistant
DX: N39.0 Urinary tract infection, site not specified (principal); Z53.8 Procedure and treatment not carried out for other reasons

== ENCOUNTER → 2023-02-22 | Outpatient (REF) | payer MEDICARE, MEDICAID ==
[2023-02-22 10:28] LABS: CREATININE FOR GFR 2.54 MG/DL (0.70-1.30); GLOMERULAR FILTRATION RATE 25.9 (>35); POTASSIUM SERUM 4.3 MMOL/L (3.5-5.1)
== END ==
PROVIDERS: ATTEND Internal Medicine
DX: I50.9 Heart failure, unspecified (principal); N18.9 Chronic kidney disease, unspecified

== ENCOUNTER → 2023-02-27 | Outpatient (REF) | payer MEDICARE, MEDICAID ==
[2023-02-27 10:09] LABS: BASO % 0.5 % (0.0-1.0); EOS # 0.1 10^3/uL (0.0-0.5); EOS % 1.3 % (0.0-3.0); HEMATOCRIT 31.7 % (42.0-52.0); HEMOGLOBIN 10.2 g/dl (13.5-17.5); LYMPH # 1.1 10^3/uL (1.5-5.0); LYMPH % 18.6 % (24.0-44.0); MEAN CORPUSCULAR HGB CONC 32.2 g/dl (32.0-36.5); MEAN CORPUSCULAR VOLUME 99.4 fl (80.0-96.0); MONO # 0.2 10^3/uL (0.0-0.8); MONO % 3.5 % (2.0-8.0); NEUTROPHILS # 4.6 10^3/uL (1.5-8.5); NEUTROPHILS % 75.9 % (36.0-66.0); PLATELET COUNT, AUTOMATED 171 10^3/uL (150-450); RED BLOOD COUNT 3.19 10^6/uL (4.30-6.10); WHITE BLOOD COUNT 6.1 10^3/uL (4.0-10.0)
[2023-02-27 10:33] LABS: ALBUMIN 3.2 G/DL (3.2-5.2); CALCIUM LEVEL 10.1 MG/DL (8.3-10.6); CREATININE FOR GFR 2.74 MG/DL (0.70-1.30); GLOMERULAR FILTRATION RATE 23.7 (>35); MAGNESIUM LEVEL 1.9 MG/DL (1.8-2.4); PHOSPHORUS LEVEL 3.2 MG/DL (2.4-5.1); POTASSIUM SERUM 4.1 MMOL/L (3.5-5.1)
== END ==
PROVIDERS: ATTEND Internal Medicine Nephrology
DX: N18.32 Chronic kidney disease, stage 3b (principal); Z79.899 Other long term (current) drug therapy

== ENCOUNTER → 2023-03-22 | Outpatient (REF) | payer MEDICARE, MEDICAID | PROVIDERS: ATTEND Physician Assistant | DX: N39.0 Urinary tract infection, site not specified (principal); Z53.8 Procedure and treatment not carried out for other reasons ==

== ENCOUNTER → 2023-04-27 | Outpatient (REF) | payer MEDICARE, MEDICAID ==
[2023-04-27 17:42] LABS: APPEARANCE, URINE HAZY (CLEAR); BACTERIA, URINE AUTO NEGATIVE (NEGATIVE); BILIRUBIN, URINE AUTO NEGATIVE (NEGATIVE); BLOOD, URINE BLOOD NEGATIVE (NEGATIVE); COLOR, URINE YELLOW (YELLOW); GLUCOSE, URINE (UA) AUTO NEGATIVE (NEGATIVE); KETONE, URINE AUTO NEGATIVE (NEGATIVE); LEUKOCYTE ESTERASE, URINE AUTO 3+ (NEGATIVE); MUCUS, URINE SMALL (NEGATIVE); NITRITE, URINE AUTO NEGATIVE (NEGATIVE); PROTEIN, URINE AUTO 1+ mg/dL (NEGATIVE); RBC, URINE AUTO 1 /HPF (0-3); SPECIFIC GRAVITY URINE AUTO 1.013 (1.002-1.035); SQUAMOUS EPITHELIAL CELL UR AU 2 /HPF (0-6); UROBILINOGEN, URINE AUTO 0.2 mg/dL (0.0-2.0); WBC, URINE AUTO 175 /HPF (0-3)
== END ==
PROVIDERS: ATTEND Physician Assistant
DX: R30.0 Dysuria (principal)

== ENCOUNTER → 2023-04-28 | Outpatient (REF) | payer MEDICARE, MEDICAID | LOC: M SFHCADAM 17:07 | PROVIDERS: ATTEND Physician Assistant | DX: Z53.9 Procedure and treatment not carried out, unspecified reason (principal) ==

== ENCOUNTER 2023-05-04 07:33 | Emergency (ER) | payer MEDICARE, MEDICAID ==
[~2023-05-04] VITALS: Ht 180.3 cm; Wt 66.8 kg
[2023-05-04] MEDS ORDERED: NITR100C2 (08:00)
[2023-05-04] MEDS ORDERED: TORS20TA2 PO (08:00)
[2023-05-04] MEDS ORDERED: LEVO1TAB38 PO (08:00)
[2023-05-04] MEDS ORDERED: BOOSTRIX VACCINE (TETANUS/DIPHTH/ACEL. PERTUSSIS) 0.5ML SYR IM ONE (08:50)
[2023-05-04 12:00] VITALS: BP 125/75; TEMP 97.5; O2SAT 98
== END 2023-05-04 12:18 | disposition home or self-care (01) ==
LOC: M ED 07:33
DX: S30.0XXA Contusion of lower back and pelvis, initial encounter (principal); W07.XXXA Fall from chair, initial encounter; Y92.129 Unspecified place in nursing home as the place of occurrence of the external cause; Y93.9 Activity, unspecified; Y99.9 Unspecified external cause status; Z87.891 Personal history of nicotine dependence; E78.5 Hyperlipidemia, unspecified; I12.9 Hypertensive chronic kidney disease with stage 1 through stage 4 chronic kidney disease, or unspecified chronic kidney disease; I25.42 Coronary artery dissection; Z79.899 Other long term (current) drug therapy; Z79.1 Long term (current) use of non-steroidal anti-inflammatories (NSAID)

== ENCOUNTER 2023-05-08 12:55 | Emergency (ER) | payer MEDICARE, MEDICAID ==
[~2023-05-08] VITALS: Ht 180.3 cm; Wt 64.1 kg
[~2023-05-08 12:55] MED LIST changes: +LEVO1TAB38 PO; +NITR100C2
[2023-05-08 13:10] VITALS: TEMP 97.6
[2023-05-08 13:50] LABS: BASO % 0.3 % (0.0-1.0); EOS # 0.2 10^3/uL (0.0-0.5); EOS % 2.9 % (0.0-3.0); HEMATOCRIT 30.4 % (42.0-52.0); HEMOGLOBIN 9.3 g/dl (13.5-17.5); LYMPH # 1.3 10^3/uL (1.5-5.0); MEAN CORPUSCULAR HEMOGLOBIN 29.6 pg (27.0-33.0); MEAN CORPUSCULAR HGB CONC 30.6 g/dl (32.0-36.5); MEAN CORPUSCULAR VOLUME 96.8 fl (80.0-96.0); MONO # 0.4 10^3/uL (0.0-0.8); MONO % 6.7 % (2.0-8.0); NEUTROPHILS # 3.9 10^3/uL (1.5-8.5); NEUTROPHILS % 66.9 % (36.0-66.0); PLATELET COUNT, AUTOMATED 162 10^3/uL (150-450); RED BLOOD COUNT 3.14 10^6/uL (4.30-6.10); WHITE BLOOD COUNT 5.8 10^3/uL (4.0-10.0)
[2023-05-08 13:58] LABS: INR 1.65; PROTHROMBIN TIME 18.9 SECONDS (12.5-14.5)
[2023-05-08 14:11] LABS: CK-MB VALUE MASS 1.7 NG/ML (<3.6)
[2023-05-08 14:14] LABS: ALBUMIN 2.9 G/DL (3.2-5.2); BILIRUBIN,DIRECT 0.1 MG/DL (<0.4); BILIRUBIN,TOTAL 0.4 MG/DL (0.3-1.2); CALCIUM LEVEL 9.5 MG/DL (8.3-10.6); CREATININE FOR GFR 2.86 MG/DL (0.70-1.30); GLOMERULAR FILTRATION RATE 22.6 (>35); MB/CK RELATIVE INDEX 4.14 (< OR =4); POTASSIUM SERUM 4.4 MMOL/L (3.5-5.1); TOTAL PROTEIN 6.2 G/DL (5.7-8.2)
[2023-05-08 15:16] LABS: CK-MB VALUE MASS 1.4 NG/ML (<3.6)
[2023-05-08 17:31] VITALS: O2SAT 96
[2023-05-08 17:46] VITALS: BP 140/83
== END 2023-05-08 18:35 | disposition home or self-care (01) ==
LOC: M ED 12:55 → EDBD 12:55 → M ED 18:35
DX: I50.9 Heart failure, unspecified (principal); R79.89 Other specified abnormal findings of blood chemistry; N28.1 Cyst of kidney, acquired; I25.84 Coronary atherosclerosis due to calcified coronary lesion; I25.10 Atherosclerotic heart disease of native coronary artery without angina pectoris; I25.2 Old myocardial infarction; I10 Essential (primary) hypertension; E78.5 Hyperlipidemia, unspecified; N18.4 Chronic kidney disease, stage 4 (severe); C61 Malignant neoplasm of prostate; Z95.828 Presence of other vascular implants and grafts; Z79.82 Long term (current) use of aspirin; Z79.01 Long term (current) use of anticoagulants; Z79.899 Other long term (current) drug therapy

== ENCOUNTER 2023-05-20 08:49 | Emergency (ER) | payer MEDICARE, MEDICAID ==
[~2023-05-20] VITALS: Ht 180.3 cm; Wt 65.4 kg
[2023-05-20 09:43] LABS: BASO % 0.3 % (0.0-1.0); EOS # 0.2 10^3/uL (0.0-0.5); EOS % 2.6 % (0.0-3.0); HEMOGLOBIN 10.5 g/dl (13.5-17.5); LYMPH # 1.2 10^3/uL (1.5-5.0); LYMPH % 16.3 % (24.0-44.0); MEAN CORPUSCULAR HEMOGLOBIN 29.7 pg (27.0-33.0); MEAN CORPUSCULAR HGB CONC 30.9 g/dl (32.0-36.5); MEAN CORPUSCULAR VOLUME 96.3 fl (80.0-96.0); MONO # 0.3 10^3/uL (0.0-0.8); MONO % 4.1 % (2.0-8.0); NEUTROPHILS # 5.6 10^3/uL (1.5-8.5); NEUTROPHILS % 76.4 % (36.0-66.0); PLATELET COUNT, AUTOMATED 168 10^3/uL (150-450); RED BLOOD COUNT 3.53 10^6/uL (4.30-6.10); WHITE BLOOD COUNT 7.3 10^3/uL (4.0-10.0)
[2023-05-20 10:04] LABS: LIPASE 51 U/L (12-53)
[2023-05-20 10:05] LABS: CK-MB VALUE MASS < 1.0 NG/ML (<3.6)
[2023-05-20 10:06] LABS: ALBUMIN 3.2 G/DL (3.2-5.2); ALKALINE PHOSPHATASE 114 U/L (46-116); ALT/SGPT 19 U/L (7.0-40); AST/SGOT 9 U/L (<34); BILIRUBIN,DIRECT 0.2 MG/DL (<0.4); BILIRUBIN,TOTAL 0.5 MG/DL (0.3-1.2); BLOOD UREA NITROGEN 81 MG/DL (9-23); CALCIUM LEVEL 9.9 MG/DL (8.3-10.6); CARBON DIOXIDE LEVEL 27 MMOL/L (20-31); CHLORIDE LEVEL 112 MMOL/L (98-107); CPK CREATINE PHOSPHOKINASE 23 U/L (46-171); CREATININE FOR GFR 2.69 MG/DL (0.70-1.30); GLOMERULAR FILTRATION RATE 24.2 (>35); GLUCOSE, FASTING 196 MG/DL (74-106); MB/CK RELATIVE INDEX 4.34 (< OR =4); POTASSIUM SERUM 4.7 MMOL/L (3.5-5.1); SODIUM LEVEL 145 MMOL/L (136-145); TOTAL PROTEIN 6.6 G/DL (5.7-8.2)
[2023-05-20] MEDS: FUROSEMIDE 20MG/2ML VIAL IV ONE (10:07)
[2023-05-20 10:08] LABS: FREE T4 1.07 NG/DL (0.89-1.76); THYROID STIMULATING HORMONE 5.887 uIU/ML (0.55-4.78)
[2023-05-20 10:36] LABS: RSV AMPLIFICATION NEGATIVE (NEGATIVE)
[2023-05-20 10:52] LABS: INR 1.44; PROTHROMBIN TIME 17.1 SECONDS (12.5-14.5)
[2023-05-20 10:53] LABS: PARTIAL THROMBOPLASTIN TIME 25.5 SECONDS (24.8-34.2)
[2023-05-20 10:55] LABS: CPK CREATINE PHOSPHOKINASE 21 U/L (46-171)
[2023-05-20 10:58] LABS: CK-MB VALUE MASS < 1.0 NG/ML (<3.6); MB/CK RELATIVE INDEX 4.76 (< OR =4)
[2023-05-20 12:46] LABS: CK-MB VALUE MASS < 1.0 NG/ML (<3.6)
[2023-05-20 12:47] LABS: CPK CREATINE PHOSPHOKINASE 24 U/L (46-171); MB/CK RELATIVE INDEX 4.16 (< OR =4)
[2023-05-20 13:45] VITALS: BP 129/67; TEMP 97.5
[2023-05-20 13:46] VITALS: O2SAT 95
== END 2023-05-20 13:50 | disposition home or self-care (01) ==
LOC: EDBD 08:49 → M ED 08:49
DX: I50.22 Chronic systolic (congestive) heart failure (principal); R07.9 Chest pain, unspecified; I44.7 Left bundle-branch block, unspecified; I48.91 Unspecified atrial fibrillation; I25.2 Old myocardial infarction; I11.0 Hypertensive heart disease with heart failure; E78.5 Hyperlipidemia, unspecified; F17.210 Nicotine dependence, cigarettes, uncomplicated; N18.30 Chronic kidney disease, stage 3 unspecified; Z79.899 Other long term (current) drug therapy; Z79.1 Long term (current) use of non-steroidal anti-inflammatories (NSAID)
CPT/HCPCS: 71045; 71250; 80047; 80048; 80076; 82550; 82553; 83690; 83880; 84439; 84443; 84484; 85025; 85610; 85730; 87040; 87631; 93005; 93041; 94760; 96374; 99285; J1940

== ENCOUNTER → 2023-06-02 | Outpatient (REF) | payer MEDICARE, MEDICAID ==
[2023-06-02 20:40] LABS: APPEARANCE, URINE MANUAL HAZY (CLEAR); COLOR, URINE MANUAL LT YELLOW (YELLOW)
[2023-06-02 20:41] LABS: BILIRUBIN, URINE MANUAL NEGATIVE (NEGATIVE); BLOOD URINE MANUAL TRACE (NEGATIVE); GLUCOSE, URINE (UA) MANUAL NEGATIVE (NEGATIVE); KETONE, URINE MANUAL NEGATIVE (NEGATIVE); LEUKOCYTE ESTERASE, URINE MAN POSITIVE (NEGATIVE); NITRITE, URINE MANUAL POSITIVE (NEGATIVE); PROTEIN, URINE MANUAL TRACE mg/dL (NEGATIVE); UROBILINOGEN, URINE MANUAL NORMAL (NORMAL)
[2023-06-02 20:47] LABS: SQUAMOUS EPITHELIAL CELL URINE SMALL AMOUNT /hpf (SMALL AMT)
[2023-06-02 20:48] LABS: BACTERIA, URINE MOD AMOUNT; HYALINE CAST, URINE NONE SEEN /lpf (0-1)
== END ==
LOC: M LAB REF 19:20
PROVIDERS: ATTEND Physician Assistant
DX: R31.9 Hematuria, unspecified (principal)

== ENCOUNTER 2023-06-06 11:43 | Emergency (ER) | payer MEDICARE, MEDICAID ==
[~2023-06-06] VITALS: Ht 180.3 cm; Wt 59.7 kg
[2023-06-06 13:05] LABS: BASO % 0.4 % (0.0-1.0); EOS # 0.3 10^3/uL (0.0-0.5); EOS % 4.6 % (0.0-3.0); HEMATOCRIT 32.4 % (42.0-52.0); HEMOGLOBIN 9.9 g/dl (13.5-17.5); LYMPH # 1.2 10^3/uL (1.5-5.0); MEAN CORPUSCULAR HEMOGLOBIN 28.8 pg (27.0-33.0); MEAN CORPUSCULAR HGB CONC 30.6 g/dl (32.0-36.5); MEAN CORPUSCULAR VOLUME 94.2 fl (80.0-96.0); MONO # 0.4 10^3/uL (0.0-0.8); MONO % 7.3 % (2.0-8.0); NEUTROPHILS # 3.7 10^3/uL (1.5-8.5); NEUTROPHILS % 66.5 % (36.0-66.0); PLATELET COUNT, AUTOMATED 168 10^3/uL (150-450); RED BLOOD COUNT 3.44 10^6/uL (4.30-6.10); WHITE BLOOD COUNT 5.6 10^3/uL (4.0-10.0)
[2023-06-06 13:33] LABS: CALCIUM LEVEL 9.2 MG/DL (8.3-10.6); CREATININE FOR GFR 2.96 MG/DL (0.70-1.30); GLOMERULAR FILTRATION RATE 21.7 (>35); POTASSIUM SERUM 3.4 MMOL/L (3.5-5.1)
[2023-06-06 14:45] VITALS: BP 114/58; TEMP 97.7; O2SAT 96
== END 2023-06-06 14:45 | disposition home or self-care (01) ==
LOC: M ED 11:43 → EDBD 11:43 → M ED 14:45
DX: N39.0 Urinary tract infection, site not specified (principal); N18.9 Chronic kidney disease, unspecified; I25.2 Old myocardial infarction; I50.22 Chronic systolic (congestive) heart failure; I11.0 Hypertensive heart disease with heart failure; Z79.1 Long term (current) use of non-steroidal anti-inflammatories (NSAID); Z79.899 Other long term (current) drug therapy

== ENCOUNTER → 2023-06-28 | Outpatient (REF) | payer MEDICARE, MEDICAID ==
[2023-06-28 11:09] LABS: BASO % 0.5 % (0.0-1.0); EOS # 0.1 10^3/uL (0.0-0.5); HEMATOCRIT 32.5 % (42.0-52.0); LYMPH # 1.1 10^3/uL (1.5-5.0); LYMPH % 17.3 % (24.0-44.0); MEAN CORPUSCULAR HEMOGLOBIN 28.9 pg (27.0-33.0); MEAN CORPUSCULAR HGB CONC 30.8 g/dl (32.0-36.5); MEAN CORPUSCULAR VOLUME 93.9 fl (80.0-96.0); MONO # 0.3 10^3/uL (0.0-0.8); MONO % 5.3 % (2.0-8.0); NEUTROPHILS # 4.5 10^3/uL (1.5-8.5); NEUTROPHILS % 74.2 % (36.0-66.0); PLATELET COUNT, AUTOMATED 196 10^3/uL (150-450); RED BLOOD COUNT 3.46 10^6/uL (4.30-6.10); WHITE BLOOD COUNT 6.1 10^3/uL (4.0-10.0)
[2023-06-28 11:33] LABS: ALBUMIN 3.1 G/DL (3.2-5.2); CALCIUM LEVEL 9.8 MG/DL (8.3-10.6); CREATININE FOR GFR 3.06 MG/DL (0.70-1.30); GLOMERULAR FILTRATION RATE 20.9 (>35); PHOSPHORUS LEVEL 3.3 MG/DL (2.4-5.1); POTASSIUM SERUM 3.7 MMOL/L (3.5-5.1)
[2023-06-28 12:07] LABS: PTH INTACT 566.9 PG/ML (18.5-88.0)
[2023-06-29 10:07] LABS: AMORPHOUS SEDIMENT SMALL (NEGATIVE); APPEARANCE, URINE CLOUDY (CLEAR); BACTERIA, URINE AUTO 1+ (NEGATIVE); BILIRUBIN, URINE AUTO NEGATIVE (NEGATIVE); BLOOD, URINE BLOOD NEGATIVE (NEGATIVE); COLOR, URINE YELLOW (YELLOW); GLUCOSE, URINE (UA) AUTO NEGATIVE (NEGATIVE); KETONE, URINE AUTO NEGATIVE (NEGATIVE); LEUKOCYTE ESTERASE, URINE AUTO 3+ (NEGATIVE); NITRITE, URINE AUTO NEGATIVE (NEGATIVE); PROTEIN, URINE AUTO NEGATIVE (NEGATIVE); RBC, URINE AUTO 13 /HPF (0-3); SPECIFIC GRAVITY URINE AUTO 1.013 (1.002-1.035); SQUAMOUS EPITHELIAL CELL UR AU 4 /HPF (0-6); UROBILINOGEN, URINE AUTO 0.2 mg/dL (0.0-2.0); WBC, URINE AUTO TNTC /HPF (0-3)
[2023-06-29 10:24] LABS: TOTAL PROTEIN,RANDOM URINE 26.9 MG/DL (0.0-14.0)
[2023-06-29 10:28] LABS: CREATININE,RANDOM URINE 71.2 MG/DL
== END ==
PROVIDERS: ATTEND Internal Medicine Nephrology
DX: N18.32 Chronic kidney disease, stage 3b (principal); Z79.899 Other long term (current) drug therapy